=== PATIENT | female | born 1970 | race Caucasian/White ===

== ENCOUNTER 2017-02-26 10:40 | Inpatient (IN) | payer MEDICAID ==
[2017-02-21 11:34] VITALS: BMI 28.3
[2017-02-26] MEDS ORDERED: Bupivacaine HCl 0.25% PF (10 ml) Inj ONE (13:59)
[2017-02-26] MEDS ORDERED: ceFAZolin IV 1 gm in Dextrose 1 GM/50 ML BAG IVPB ONE (13:59)
[2017-02-26] MEDS ORDERED: Lactated Ringer's 1,000 ML IV ONE (14:05)
[2017-02-26] MEDS ORDERED: Midazolam 2 MG/2 ML VIAL ONE (14:09)
[2017-02-26] MEDS ORDERED: Propofol 10 mg/ml Inj (20 ML) ONE (14:09)
[2017-02-26] MEDS ORDERED: HYDROmorphone 0.5 mg/0.5 ml ISec IVP PRN (15:27)
[2017-02-26] MEDS ORDERED: Lactated Ringer's 1,000 ML IV SCH (15:30)
[2017-02-26] MEDS ORDERED: ceFAZolin IV 1 gm in Dextrose 1 GM/50 ML BAG IVPB SCH (15:45)
[2017-02-26] MEDS: ceFAZolin IV 1 gm in Dextrose 1 GM/50 ML BAG IVPB SCH (21:37)
[2017-02-26] MEDS: Enoxaparin 30 mg Syringe SC SCH (22:48)
[2017-02-26] MEDS: Oxycodone/Acetaminophen 5/325 mg Tab PO PRN (22:54)
[2017-02-27] MEDS: ceFAZolin IV 1 gm in Dextrose 1 GM/50 ML BAG IVPB SCH ×3 (05:29→22:25)
[2017-02-27 07:43] LABS: BASO % 0.5 % (0.0-2.0); EOS # 0.6 K/uL (0.0-0.7); EOS % 9.8 % (0.0-4.0); HEMOGLOBIN 10.2 g/dL (11.0-16.0); LYMPH # 1.5 K/uL (1.0-4.3); LYMPH % 23.9 % (20.0-40.0); MEAN CELL VOLUME 78.8 fL (81.0-99.0); MEAN PLATELET VOLUME 9.1 fL (7.2-11.7); MONO # 0.7 K/uL (0.0-0.8); MONO % 10.5 % (0.0-10.0); NEUT # 3.5 K/uL (1.8-7.0); NEUT % 55.3 % (50.0-75.0); RBC 3.91 Mil/uL (3.80-5.20); RED CELL DISTRIBUTION WIDTH 15.9 % (11.5-14.5); WHITE BLOOD COUNT 6.3 K/uL (4.8-10.8)
[2017-02-27 08:06] LABS: ALBUMIN 3.6 g/dL (3.5-5.0)
[2017-02-27 08:09] LABS: ALB/GLOB RATIO 1.2 (1.0-2.1); AST/SGOT 37 U/L (14-36); BLOOD UREA NITROGEN 11 mg/dL (7-17); GFR AFRICAN-AMERICAN > 60; GFR NON-AFRICAN AMERICAN > 60
[2017-02-27 08:10] LABS: ALT/SGPT 44 U/L (9-52); CALCIUM 8.5 mg/dl (8.6-10.4)
[2017-02-27] MEDS: Enoxaparin 30 mg Syringe SC SCH ×3 (09:38→22:27)
[2017-02-27] MEDS: Oxycodone/Acetaminophen 5/325 mg Tab PO PRN ×2 (09:41→19:15)
[2017-02-27] MEDS: Dextrose 5%/0.45% NS 1,000 ML IV SCH ×2 (11:54→17:25)
[2017-02-28 00:20] VITALS: PULSE 99; O2SAT 98
[2017-02-28] MEDS: ceFAZolin IV 1 gm in Dextrose 1 GM/50 ML BAG IVPB SCH (06:41)
[2017-02-28 08:40] VITALS: BP 99/67; RESP 18; TEMP 98.8
[2017-02-28] MEDS: Oxycodone/Acetaminophen 5/325 mg Tab PO PRN (09:41)
[2017-02-28] MEDS: Enoxaparin 30 mg Syringe SC SCH (09:44)
[2017-02-28] MEDS ORDERED: Pantoprazole 40 mg EC Tab PO SCH (10:00)
--- NOTE | 2017-03-20 05:11 | OP ---
PROCEDURE DATE: 02/28/2017 PREOPERATIVE DIAGNOSIS: Bilateral large soft tissue knee tumors. POSTOPERATIVE DIAGNOSIS: Bilateral large soft tissue knee tumors. PROCEDURE PERFORMED: Wide deep excision of a 12 cm soft tissue knee tumor of the left knee and 10 cm soft tissue tumor of the right knee with repair of blood vessels and excision tissue transfer closure bilaterally. SURGEON: Dr. Mantilla. TYPE OF ANESTHESIA: General. ESTIMATED BLOOD LOSS: 50 mL POSTOPERATIVE CONDITION: Stable. INDICATION FOR SURGERY: This is a 47-year-old female with a bilateral knee tumors medially which were uncomfortable and increased in its size and pain, who now undergo simultaneous excision. DESCRIPTION OF PROCEDURE: The patient taken to the operating room, general anesthesia was administered and both legs were prepped and draped. Attention was first turned to the left knee medially where transverse elliptical incision was made surrounding the mass. Superior and inferior flaps were raised and the tumor was completely excised to the fascial layer and removed. Bleeding was controlled using the Bovie. Large blood vessels were repaired. Wound was irrigated with copious amounts of saline solution and the tissue was widely using the Bovie and adjacent tissue transfer closure of greater than 30 sq cm was performed. Using multilayer of heavy Monocryl, subcuticular Monocryl and skin clips. The above was repeated on the right side without significant change. The patient tolerated the procedure well. Returned to the recovery room in stable condition. Graham Mantilla MD
== END 2017-02-28 16:20 | disposition home or self-care (01) | DRG 266 ==
LOC: C.SDS 10:40 → C.9E 15:31 → C.6T 22:02
PROVIDERS: ADMIT Surgery; ATTEND Surgery
PROC: 0JBN0ZZ Excision of Right Lower Leg Subcutaneous Tissue and Fascia, Open Approach (ICD-10-PCS; 2017-02-26)
PROC: 0JBP0ZZ Excision of Left Lower Leg Subcutaneous Tissue and Fascia, Open Approach (ICD-10-PCS; principal; 2017-02-26 13:00)
DX: D17.23 Benign lipomatous neoplasm of skin and subcutaneous tissue of right leg (principal); D17.24 Benign lipomatous neoplasm of skin and subcutaneous tissue of left leg; D23.72 Other benign neoplasm of skin of left lower limb, including hip; D23.71 Other benign neoplasm of skin of right lower limb, including hip

== ENCOUNTER 2017-03-17 08:43 | Inpatient (IN) | payer MEDICAID ==
[2017-03-12 07:48] VITALS: BMI 37.0
[2017-03-17] MEDS ORDERED: ceFAZolin IV 1 gm in Dextrose 0 GM/0 ML BAG IVPB ONE (10:43)
[2017-03-17] MEDS ORDERED: Bacitracin Ointment 30 GM TUBE ONE (10:43)
[2017-03-17] MEDS ORDERED: Midazolam 2 MG/2 ML VIAL ONE (11:49)
[2017-03-17] MEDS ORDERED: Propofol 10 mg/ml Inj (20 ML) ONE ×2 (11:49→12:43)
[2017-03-17] MEDS ORDERED: Lactated Ringer's 1,000 ML IV ONE ×2 (12:00→15:10)
[2017-03-17] MEDS ORDERED: Bupivacaine HCl 0.25% PF (10 ml) Inj ONE (12:06)
[2017-03-17] MEDS ORDERED: ceFAZolin IV 2 gm in Dextrose 1 GM/50 ML BAG IVPB ONE (12:06)
[2017-03-17] MEDS ORDERED: Rocuronium 10 mg/ml (5 ml) ONE (12:08)
[2017-03-17] MEDS ORDERED: Succinylcholine Chloride 20 mg/ml Syr (5 ml) IV ONE (12:08)
[2017-03-17] MEDS ORDERED: Morphine 4 MG/ML VIAL ONE (12:29)
[2017-03-17] MEDS ORDERED: HYDROmorphone 0.5 mg/0.5 ml ISec IVP PRN (12:37)
[2017-03-17] MEDS: ceFAZolin IV 1 gm in Dextrose 1 GM/50 ML BAG IVPB SCH (18:00)
[2017-03-17] MEDS: Oxycodone/Acetaminophen 5/325 mg Tab PO PRN (21:52)
[2017-03-18] MEDS: ceFAZolin IV 1 gm in Dextrose 1 GM/50 ML BAG IVPB SCH ×3 (00:45→16:00)
--- NOTE | 2017-03-18 01:16 | OP ---
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 PROCEDURE PERFORMED: 1. Right deep radical resection of tumor of the left hip with adjacent tissue transfer closure. 2. Drainage of seroma of the right knee. SURGEON: Dr. Mantilla. TYPE OF ANESTHESIA: General. ESTIMATED BLOOD LOSS: 40 mL. POSTOPERATIVE CONDITION: Stable. INDICATIONS FOR SURGERY: This is a 47-year-old female, who is 3 weeks status post bilateral excision of knee tumors, one of which required a drain. 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 Of note, on presentation today, she has a small seroma in one of her right knee incision and this will be drained at the time of surgery. DESCRIPTION OF PROCEDURE: The patient was taken to the operating room, placed in the right lateral decubitus position with the right hip elevated. The tumor was measured and found to be 16 x 10 cm in size. A generous elliptical incision was made over the tumor. Superior and inferior flaps were raised completely excising the tumor down to the fascial layer. The fascial layer was completely removed off tumor and a pelvic blood vessel was noted and repaired. The wound was irrigated with copious amounts of saline solution, *------* large tissue defect a greater than 30 sq cm transfer closure was performed by widely mobilizing and undermining using the Bovie and then using multiple layers of subcuticular Monocryl and clips. A Chase drain was left in place. Attention was then turned to the left knee where most seroma was noted, opened, drained, irrigated and packed. The patient tolerated the procedure well and returned to the recovery room in stable condition. Graham Mantilla MD
[2017-03-18 08:36] LABS: BASO # 0.1 K/uL (0.0-0.2); BASO % 1.2 % (0.0-2.0); EOS # 0.4 K/uL (0.0-0.7); EOS % 9.3 % (0.0-4.0); HEMOGLOBIN 9.7 g/dL (11.0-16.0); LYMPH # 1.7 K/uL (1.0-4.3); LYMPH % 36.9 % (20.0-40.0); MEAN CELL VOLUME 77.8 fL (81.0-99.0); MEAN CORPUSCULAR HEMOGLOBIN 24.7 pg (27.0-31.0); MEAN CORPUSCULAR HGB CONC 31.8 g/dL (33.0-37.0); MEAN PLATELET VOLUME 9.1 fL (7.2-11.7); MONO # 0.5 K/uL (0.0-0.8); MONO % 9.7 % (0.0-10.0); NEUT % 42.9 % (50.0-75.0); NRBC % 0.1 % (0.0-2.0); RBC 3.91 Mil/uL (3.80-5.20); RED CELL DISTRIBUTION WIDTH 15.6 % (11.5-14.5); WHITE BLOOD COUNT 4.7 K/uL (4.8-10.8)
[2017-03-18 09:11] LABS: ALBUMIN 3.3 g/dL (3.5-5.0)
[2017-03-18 09:14] LABS: ALB/GLOB RATIO 1.1 (1.0-2.1); AST/SGOT 35 U/L (14-36); BLOOD UREA NITROGEN 17 mg/dL (7-17); GFR AFRICAN-AMERICAN > 60; GFR NON-AFRICAN AMERICAN > 60
[2017-03-18 09:15] LABS: ALT/SGPT 42 U/L (9-52); CALCIUM 8.4 mg/dl (8.6-10.4)
[2017-03-18] MEDS: Enoxaparin 40 mg Syringe SC SCH (09:24)
--- NOTE | 2017-03-18 16:27 | CP.PCM.CON ---
<Naomi Morejon - Last Filed: 03/18/17 15:59> History of Present Illness - History of Present Illness History of Present Illness: CC: "I feel good" HPI: Patient is a 47 year old female with PMHx of DMII and hypothyroidism presenting s/p b/l hip mass excisions POD #[address] Mantilla. Patient is scheduled for another right hip mass excision tomorrow morning. Patient reports no pain. She denies fever, chills, chest pain, SOB, nausea, vomiting, diarrhea, constipation, dysuria, headaches. PMHx: as shayla PSHx: C section 2002, b/l knee mass excision - pathology came back as soft yellow adipose tissue Family Hx: Father had CVA in his 80s, no MIs or CA Social Hx: denies tobacco use ever, denies ETOH use, denies illicit drug use, Review of Systems - Constitutional Constitutional: absent: Chills, Fever - EENT Eyes: absent: Change in Vision Ears: absent: Dizziness Nose/Mouth/Throat: absent: Sore Throat - Cardiovascular Cardiovascular: absent: Chest Pain, Palpitations, Pedal Edema - Respiratory Respiratory: absent: Cough, Dyspnea, Wheezing - Gastrointestinal Gastrointestinal: absent: Abdominal Pain, Constipation, Diarrhea, Nausea, Vomiting - Genitourinary Genitourinary: absent: Dysuria - Integumentary Integumentary: absent: Skin Pain - Neurological Neurological: absent: Dizziness, Headaches - Psychiatric Psychiatric: absent: Anxiety - Hematologic/Lymphatic Hematologic: absent: Easy Bleeding, Easy Bruising Past Patient History - Past Medical History & Family History Past Medical History?: Yes Past Family History: Reviewed and not pertinent - Past Social History Smoking Status: Never Smoked 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 HX: MASS LEFT THIGH - MUSCULOSKELETAL/RHEUMATOLOGICAL Hx Falls: No - PSYCHIATRIC Hx Substance Use: No - SURGICAL HISTORY Hx Surgeries: Yes Hx Section: Yes Other/Comment: HX: EXCISION BILATERAL KNEE TUMORS - ANESTHESIA Hx Anesthesia: Yes Hx Anesthesia Reactions: No Hx Malignant Hyperthermia: No Meds Allergies/Adverse Reactions: Allergies Allergy/AdvReac Type Severity Reaction Status Date / Time No Known Allergies Allergy Verified 04/04/14 11:14 - Medications Medications: Current Medications Docusate Sodium (Colace) 100 mg PO BID [facility] Last Admin: 03/18/17 09:25 Dose: 100 mg Enoxaparin Sodium (Lovenox) 40 mg SC DAILY [facility] Last Admin: 03/18/17 09:24 Dose: 40 mg Famotidine (Pepcid) 20 mg IVP DAILY [facility] Last Admin: 03/18/17 09:25 Dose: 20 mg Cefazolin Sodium/Dextrose (Ancef Iv 1 Gm Duplex) 1 gm in 50 mls @ 100 mls/hr IVPB Q8H [facility] Last Admin: 03/18/17 09:25 Dose: 100 mls/hr Ondansetron HCl (Zofran Inj) 4 mg IVP Q6 PRN PRN Reason: Nausea/Vomiting Oxycodone/Acetaminophen (Percocet 5/325 Mg Tab) 2 tab PO Q4H PRN PRN Reason: pain Stop: 03/20/17 16:01 Last Admin: 03/17/17 21:52 Dose: 2 tab Physical Exam - Constitutional Appears: Non-toxic, No Acute Distress - Head Exam Head Exam: NORMAL INSPECTION - Eye Exam Eye Exam: EOMI - ENT Exam ENT Exam: Mucous Membranes Moist - Respiratory Exam Respiratory Exam: Clear to Auscultation Bilateral, NORMAL BREATHING PATTERN. absent: Rales, Rhonchi, Wheezes - Cardiovascular Exam Cardiovascular Exam: REGULAR RHYTHM, +S1, +S2. absent: Gallop, Rubs, Systolic Murmur - GI/Abdominal Exam GI & Abdominal Exam: Normal Bowel Sounds, Soft. absent: Distended, Firm, Tenderness - Extremities Exam Extremities exam: Positive for: normal capillary refill. Negative for: pedal edema - Neurological Exam Neurological exam: Alert, Oriented x3 - Psychiatric Exam Psychiatric exam: Normal Affect, Normal Mood - Skin Skin Exam: Normal Color, Warm Results - Vital Signs Recent Vital Signs: Last Vital Signs Temp 98.4 F 03/18/17 08:00 Pulse 85 03/18/17 08:00 Resp 20 03/18/17 08:00 BP 127/80 03/18/17 08:00 Pulse Ox 94 L 03/18/17 08:00 - Labs Result Diagrams: 03/18/17 08:23 03/18/17 08:23 Labs: Laboratory Results - last 24 hr 03/17/17 03/17/17 03/18/17 18:15 21:34 07:13 WBC RBC Hgb Hct MCV MCH MCHC RDW Plt Count MPV Neut % (Auto) Lymph % (Auto) [place] % (Auto) Eos % (Auto) Baso % (Auto) Neut # Lymph # [place] # Eos # Baso # Sodium Potassium Chloride Carbon Dioxide Anion Gap BUN Creatinine Est GFR ( Amer) Est GFR (Non-Af Amer) POC Glucose (mg/dL) 103 167 H 121 H Random Glucose Calcium Total Bilirubin AST ALT Alkaline Phosphatase Total Protein Albumin Globulin Albumin/Globulin Ratio 03/18/17 03/18/17 03/18/17 08:23 08:23 10:43 WBC 4.7 L RBC 3.91 Hgb 9.7 L Hct 30.4 L MCV 77.8 L MCH 24.7 L MCHC 31.8 L RDW 15.6 H Plt Count 179 MPV 9.1 Neut % (Auto) 42.9 L Lymph % (Auto) 36.9 [place] % (Auto) 9.7 Eos % (Auto) 9.3 H Baso % (Auto) 1.2 Neut # 2.0 Lymph # 1.7 [place] # 0.5 Eos # 0.4 Baso # 0.1 Sodium 136 Potassium 3.7 Chloride 101 Carbon Dioxide 26 Anion Gap 13 BUN 17 Creatinine 0.6 L Est GFR ( Amer) > 60 Est GFR (Non-Af Amer) > 60 POC Glucose (mg/dL) 112 H Random Glucose 122 H Calcium 8.4 L Total Bilirubin 0.3 AST 35 ALT 42 Alkaline Phosphatase 51 Total Protein 6.3 Albumin 3.3 L Globulin 3.0 Albumin/Globulin Ratio 1.1 Assessment & Plan - Assessment and Plan (Free Text) Assessment: DM II Holding home metformin 1000mg PO BID RISS accuchecks F/U HgbA1C Hypothyroid F/U TSH Continue home synthroid 75 mcg PO daily S/P Hip mass excision POD #[address] Mantilla Ancef 1gm IVPB Q8H Colace 100mg PO BID Percocet 5/325mg 2 tab PO Q4H PRN Zofran 4mg IVP Q6 PRN Prophylaxis Lovenox 40mg SC daily - held for surgery tomorrow Pepcid 20mg IVP daily <Prateek Hernandezjaxon Berman - Last Filed: 03/19/17 16:21> Meds - Medications Medications: Current Medications Docusate Sodium (Colace) 100 mg PO BID [facility] Last Admin: 03/19/17 10:00 Dose: Not Given Enoxaparin Sodium (Lovenox) 40 mg SC DAILY [facility] Last Admin: 03/18/17 09:24 Dose: 40 mg Famotidine (Pepcid) 20 mg IVP DAILY [facility] Last Admin: 03/19/17 09:27 Dose: 20 mg Hydromorphone HCl (Dilaudid) 0.5 mg IVP Q10M PRN PRN Reason: Pain, moderate (4-7) Stop: 03/19/17 16:36 Last Admin: 03/19/17 15:03 Dose: 0.5 mg Cefazolin Sodium/Dextrose (Ancef Iv 1 Gm Duplex) 1 gm in 50 mls @ 100 mls/hr IVPB Q8H [facility] Last Admin: 03/19/17 08:30 Dose: 100 mls/hr Insulin Human Regular (Novolin R) 0 unit SC [facility] PRN Reason: Protocol Levothyroxine Sodium (Synthroid) 75 mcg PO DAILY@0630 [facility] Last Admin: 03/19/17 05:40 Dose: 75 mcg Ondansetron HCl (Zofran Inj) 4 mg IVP Q6 PRN PRN Reason: Nausea/Vomiting Oxycodone/Acetaminophen (Percocet 5/325 Mg Tab) 2 tab PO Q4H PRN PRN Reason: pain Stop: 03/20/17 16:01 Last Admin: 03/17/17 21:52 Dose: 2 tab Results - Vital Signs Recent Vital Signs: Last Vital Signs Temp 99.1 F 03/19/17 14:35 Pulse 76 03/19/17 15:15 Resp 10 L 03/19/17 15:15 BP 128/70 03/19/17 15:15 Pulse Ox 99 03/19/17 15:15 - Labs Result Diagrams: 03/18/17 08:23 03/18/17 08:23 Labs: Laboratory Results - last 24 hr 03/18/17 03/18/17 03/19/17 16:47 21:32 07:01 POC Glucose (mg/dL) 107 124 H Hemoglobin A1c 7.3 H TSH 3rd Generation Urine HCG, Qual 03/19/17 03/19/17 03/19/17 07:01 07:08 07:15 POC Glucose (mg/dL) 119 H Hemoglobin A1c TSH 3rd Generation 5.95 H Urine HCG, Qual Negative 03/19/17 03/19/17 11:25 16:03 POC Glucose (mg/dL) 117 H 128 H Hemoglobin A1c TSH 3rd Generation Urine HCG, Qual Attending/Attestation - Attestation I have personally seen and examined this patient.: Yes I have fully participated in the care of the patient.: Yes I have reviewed all pertinent clinical information: Yes Notes (Text): 03/19/17 16:21 Patient was seen and examined at bedside with the resident at the time of consultation I discussed the plan of care with the resident in detail and agree with the assessment and plan documented here. Thank you for allowing us to participate in the care of this patient. We will continue to follow the patient during her stay in the hospital.
[2017-03-18] MEDS: (Novolin R) Insulin Human Regular 100 units/ml vial SC SCH ×2 (16:30→22:00)
[2017-03-19] MEDS: ceFAZolin IV 1 gm in Dextrose 1 GM/50 ML BAG IVPB SCH ×3 (00:10→16:29)
[2017-03-19] MEDS: Levothyroxine 75 MCG TAB PO SCH (05:40)
[2017-03-19] MEDS: (Novolin R) Insulin Human Regular 100 units/ml vial SC SCH ×4 (08:12→21:43)
[2017-03-19] MEDS ORDERED: Lactated Ringer's 1,000 ML IV ONE ×2 (12:44)
[2017-03-19] MEDS ORDERED: Midazolam 2 MG/2 ML VIAL ONE (13:21)
[2017-03-19] MEDS ORDERED: Propofol 10 mg/ml Inj (20 ML) ONE (13:21)
[2017-03-19] MEDS: HYDROmorphone 0.5 mg/0.5 ml ISec IVP PRN ×2 (14:43→15:03)
--- NOTE | 2017-03-19 16:44 | CP.PCM.PN ---
<Laura Mcgraw - Last Filed: 03/19/17 18:16> Subjective - Date & Time of Evaluation Date of Evaluation: 03/19/17 Time of Evaluation: 07:30 - Subjective Subjective: PGY1- Medicine Note- Dr. Obrien's Service Patient seen and examined at bedside this am and feeling okay. Patient has some left sided pain at the site of her incision and a drain with serosangious drainage. Patient reexamined after her surgery on the right hip and was in more pain especially on the right side. Left drain had been removed. She denied headache, chest pain, abdominal pain, nausea, vomiting, diarrhea, constipation. Objective - Vital Signs/Intake and Output Vital Signs (last 24 hours): Temp Pulse Resp BP Pulse Ox 99.1 F 76 10 L 128/70 99 03/19/17 14:35 03/19/17 15:15 03/19/17 15:15 03/19/17 15:15 03/19/17 15:15 Intake and Output: 03/19/17 03/19/17 06:59 18:59 Intake Total 600 150 Output Total 80 100 Balance 520 50 - Medications Medications: Current Medications Docusate Sodium (Colace) 100 mg PO BID [facility] Last Admin: 03/19/17 10:00 Dose: Not Given Enoxaparin Sodium (Lovenox) 40 mg SC DAILY [facility] Last Admin: 03/18/17 09:24 Dose: 40 mg Famotidine (Pepcid) 20 mg IVP DAILY [facility] Last Admin: 03/19/17 09:27 Dose: 20 mg Cefazolin Sodium/Dextrose (Ancef Iv 1 Gm Duplex) 1 gm in 50 mls @ 100 mls/hr IVPB Q8H [facility] Last Admin: 03/19/17 16:29 Dose: 100 mls/hr Insulin Human Regular (Novolin R) 0 unit SC ACHS [facility] PRN Reason: Protocol Levothyroxine Sodium (Synthroid) 75 mcg PO DAILY@0630 [facility] Last Admin: 03/19/17 05:40 Dose: 75 mcg Ondansetron HCl (Zofran Inj) 4 mg IVP Q6 PRN PRN Reason: Nausea/Vomiting Oxycodone/Acetaminophen (Percocet 5/325 Mg Tab) 2 tab PO Q4H PRN PRN Reason: pain Stop: 03/20/17 16:01 Last Admin: 03/17/17 21:52 Dose: 2 tab - Labs Labs: 03/18/17 08:23 03/18/17 08:23 - Constitutional Appears: Well, Non-toxic, No Acute Distress - Head Exam Head Exam: ATRAUMATIC, NORMAL INSPECTION, NORMOCEPHALIC - Eye Exam Eye Exam: Normal appearance - ENT Exam ENT Exam: Mucous Membranes Moist, Normal Exam - Neck Exam Neck Exam: Full ROM, Normal Inspection. absent: Lymphadenopathy - Respiratory Exam Respiratory Exam: Clear to Ausculation Bilateral, NORMAL BREATHING PATTERN - Cardiovascular Exam Cardiovascular Exam: REGULAR RHYTHM, +S1, +S2. absent: Murmur - GI/Abdominal Exam GI & Abdominal Exam: Soft, Normal Bowel Sounds. absent: Distended, Firm, Guarding, Rigid, Tenderness - Extremities Exam Extremities Exam: Tenderness Additional comments: right and left side incisions covered with dry, clean, intact dressing b/l knees with juana healing well - Back Exam Back Exam: NORMAL INSPECTION. absent: rash noted - Neurological Exam Neurological Exam: Alert, Awake, Oriented x3 - Psychiatric Exam Psychiatric exam: Normal Affect, Normal Mood - Skin Skin Exam: Normal Color, Warm Additional comments: right and left side incisions covered with dry, clean, intact dressing b/l knees with juana healing well Assessment and Plan - Assessment and Plan (Free Text) Assessment: DM II Holding home metformin 1000mg PO BID until patient on a consistent diet RISS accuchecks [id number] Hypothyroid TSH-5.95 Continue home synthroid 75 mcg PO daily S/P left Hip mass excision POD #2 and right Hip mass excision POD #[address] Mantilla Ancef 1gm IVPB Q8H Colace 100mg PO BID Percocet 5/325mg 2 tab PO Q4H PRN Zofran 4mg IVP Q6 PRN Prophylaxis Lovenox 40mg SC daily - held b/c of surgery Pepcid 20mg IVP daily <Nori Obrien V - Last Filed: 03/19/17 23:09> Objective - Vital Signs/Intake and Output Vital Signs (last 24 hours): Temp Pulse Resp BP Pulse Ox 97.9 F 69 20 104/69 95 03/19/17 16:20 03/19/17 16:20 03/19/17 16:20 03/19/17 16:20 03/19/17 16:20 Intake and Output: 03/19/17 03/20/17 18:59 06:59 Intake Total 150 Output Total 100 Balance 50 - Medications Medications: Current Medications Docusate Sodium (Colace) 100 mg PO BID [facility] Last Admin: 03/19/17 17:43 Dose: 100 mg Enoxaparin Sodium (Lovenox) 40 mg SC DAILY [facility] Last Admin: 03/18/17 09:24 Dose: 40 mg Famotidine (Pepcid) 20 mg IVP DAILY [facility] Last Admin: 03/19/17 09:27 Dose: 20 mg Cefazolin Sodium/Dextrose (Ancef Iv 1 Gm Duplex) 1 gm in 50 mls @ 100 mls/hr IVPB Q8H [facility] Last Admin: 03/19/17 16:29 Dose: 100 mls/hr Insulin Human Regular (Novolin R) 0 unit SC ACHS [facility] PRN Reason: Protocol Last Admin: 03/19/17 21:43 Dose: Not Given Levothyroxine Sodium (Synthroid) 75 mcg PO DAILY@0630 [facility] Last Admin: 03/19/17 05:40 Dose: 75 mcg Ondansetron HCl (Zofran Inj) 4 mg IVP Q6 PRN PRN Reason: Nausea/Vomiting Last Admin: 03/19/17 17:34 Dose: 4 mg Oxycodone/Acetaminophen (Percocet 5/325 Mg Tab) 2 tab PO Q4H PRN PRN Reason: pain Stop: 03/20/17 16:01 Last Admin: 03/19/17 17:43 Dose: 2 tab - Labs Labs: 03/19/17 17:05 03/19/17 17:05 Attending/Attestation - Attestation I have personally seen and examined this patient.: Yes I have fully participated in the care of the patient.: Yes I have reviewed all pertinent clinical information, including history, physical exam and plan: Yes Notes (Text): Patient seen, examined, and case discussed with day-time resident. Patient seen post-OR today with family at bedside. patient reports she urinated post-OR in recovery. Patient reports history of diabetes; wherein she takes Metformin; last use she reports was on Friday. Patient started on diet per surgery; diet adjusted to diabetic diet. Will continue to monitor accuchecks. insulin sliding scale subq, and continue thyroid medication. Surgery decision-making including preoperative/intraoperative/postoperative per surgery. Assessment/Plan 1) Diabetes type 2 * Holding home metformin 1000mg PO BID * Started on carbohydrate consistent diet * RISS * accuchecks QAC and HS * [id number] 2) Hypothyroid * TSH-5.95 * Continue home synthroid 75 mcg PO daily 3) S/P left Hip mass excision POD #2 and right Hip mass excision POD #0 * General surgery/Primary (Dr. Vargas) on case * Surgery decision-making including preoperative/intraoperative/postoperative per surgery. * Per surgery: * Ancef 1gm IVPB Q8H * Colace 100mg PO BID * Percocet 5/325mg 2 tab PO Q4H PRN pain * Zofran 4mg IVP Q6 PRN nausea 4) Prophylaxis * Anticoagulation to be determine by surgery * Pepcid 20mg IVP daily
[2017-03-19 16:50] VITALS: RESP 20
[2017-03-19 17:11] LABS: BASO % 0.5 % (0.0-2.0); EOS # 0.7 K/uL (0.0-0.7); EOS % 10.9 % (0.0-4.0); HEMOGLOBIN 9.5 g/dL (11.0-16.0); LYMPH # 1.6 K/uL (1.0-4.3); LYMPH % 26.1 % (20.0-40.0); MEAN CELL VOLUME 77.8 fL (81.0-99.0); MEAN CORPUSCULAR HEMOGLOBIN 25.1 pg (27.0-31.0); MEAN CORPUSCULAR HGB CONC 32.3 g/dL (33.0-37.0); MEAN PLATELET VOLUME 8.3 fL (7.2-11.7); MONO # 0.6 K/uL (0.0-0.8); MONO % 10.4 % (0.0-10.0); NEUT # 3.1 K/uL (1.8-7.0); NEUT % 52.1 % (50.0-75.0); RBC 3.81 Mil/uL (3.80-5.20); RED CELL DISTRIBUTION WIDTH 15.5 % (11.5-14.5)
[2017-03-19 17:27] LABS: ALBUMIN 3.6 g/dL (3.5-5.0)
[2017-03-19 17:29] LABS: GFR AFRICAN-AMERICAN > 60; GFR NON-AFRICAN AMERICAN > 60
[2017-03-19 17:30] LABS: ALB/GLOB RATIO 1.1 (1.0-2.1); ALT/SGPT 34 U/L (9-52); AST/SGOT 25 U/L (14-36); BLOOD UREA NITROGEN 12 mg/dL (7-17); CALCIUM 8.1 mg/dl (8.6-10.4)
[2017-03-19 17:31] LABS: MAGNESIUM 1.8 mg/dL (1.6-2.3)
[2017-03-19] MEDS: Oxycodone/Acetaminophen 5/325 mg Tab PO PRN (17:43)
[2017-03-20] MEDS: ceFAZolin IV 1 gm in Dextrose 1 GM/50 ML BAG IVPB SCH ×3 (00:55→17:27)
--- NOTE | 2017-03-20 04:49 | OP ---
PROCEDURE DATE: 03/19/2017 PREOPERATIVE DIAGNOSIS: A 15 cm soft tissue tumor of the right hip. POSTOPERATIVE DIAGNOSIS: A 15 cm soft tissue tumor of the right hip. PROCEDURE PERFORMED: Wide deep excision and radical resection of right hip tumor with adjacent tissue transfer closure. SURGEON: Dr. Mantilla. TYPE OF ANESTHESIA: General. ESTIMATED BLOOD LOSS: 40 mL. POSTOPERATIVE CONDITION: Stable. INDICATIONS FOR SURGERY: The patient was taken back to the OR for a staged removal of bilateral hip tumors. She underwent removal of a large left hip tumor 2 days ago. She has also had drainage of a wound infection of her right knee from previous surgery and that will be also be dealt with in the OR today. DESCRIPTION OF PROCEDURE: The patient was taken to the operating room. General anesthesia was administered. He was placed in the left lateral decubitus position. The right hip was prepped and draped. A generous elliptical excision was made surrounding the hip tumor and superior and inferior tissue flaps were raised. The hip tumor was excised into the facial layer and removed. Bleeding was controlled with the use of Bovie. Large vessel was repaired. The wound was irrigated with saline and the tissue was widely undermined and greater than 30 cm2 adjacent tissue transfer closure was performed using multiple layers of Monocryl, subcuticular Monocryl and skin clips. The patient was then placed in the supine position and the right knee packing from the previous drainage of the right knee seroma was prepped and draped. The right knee area was pulse irrigated and packed with wet saline gauze. The patient tolerated the procedure well and returned to the recovery room in stable condition. Graham Mantilla MD
[2017-03-20] MEDS: Levothyroxine 75 MCG TAB PO SCH (05:59)
[2017-03-20 06:38] LABS: BASO % 0.5 % (0.0-2.0); EOS # 0.7 K/uL (0.0-0.7); EOS % 11.1 % (0.0-4.0); HEMOGLOBIN 8.9 g/dL (11.0-16.0); LYMPH # 1.7 K/uL (1.0-4.3); MEAN CELL VOLUME 77.6 fL (81.0-99.0); MEAN CORPUSCULAR HEMOGLOBIN 25.2 pg (27.0-31.0); MEAN CORPUSCULAR HGB CONC 32.4 g/dL (33.0-37.0); MEAN PLATELET VOLUME 7.8 fL (7.2-11.7); MONO # 0.8 K/uL (0.0-0.8); MONO % 11.8 % (0.0-10.0); NEUT # 3.3 K/uL (1.8-7.0); NEUT % 50.6 % (50.0-75.0); RBC 3.54 Mil/uL (3.80-5.20); RED CELL DISTRIBUTION WIDTH 15.8 % (11.5-14.5); WHITE BLOOD COUNT 6.6 K/uL (4.8-10.8)
[2017-03-20 07:20] LABS: ALBUMIN 3.3 g/dL (3.5-5.0)
[2017-03-20 07:22] LABS: GFR AFRICAN-AMERICAN > 60; GFR NON-AFRICAN AMERICAN > 60
[2017-03-20 07:23] LABS: ALB/GLOB RATIO 1.1 (1.0-2.1); ALT/SGPT 32 U/L (9-52); AST/SGOT 30 U/L (14-36); BLOOD UREA NITROGEN 16 mg/dL (7-17); CALCIUM 8.4 mg/dl (8.6-10.4)
[2017-03-20] MEDS ORDERED: POLYETHYLENE GLYCOL 3350 17 GM/Dose PACKET PO ONE ×2 (07:30→13:14)
[2017-03-20] MEDS: (Novolin R) Insulin Human Regular 100 units/ml vial SC SCH ×4 (08:34→21:49)
[2017-03-20] MEDS: Oxycodone/Acetaminophen 5/325 mg Tab PO PRN (11:34)
--- NOTE | 2017-03-20 21:29 | CP.PCM.PN ---
<Laura Mcgraw - Last Filed: 03/20/17 21:26> Subjective - Date & Time of Evaluation Date of Evaluation: 03/20/17 Time of Evaluation: 07:30 - Subjective Subjective: PGY1- Medicine Note- Dr. Obrien's Service Patient seen and examined at bedside and in no acute distress. Patient has right sided hip pain. Patient has not had a bowel movement. Patient denies fever , chills, shortness of breath, chest pain, abdominal pain, nausea, vomiting. Objective - Vital Signs/Intake and Output Vital Signs (last 24 hours): Temp Pulse Resp BP Pulse Ox 98.6 F 68 20 113/78 98 03/20/17 15:50 03/20/17 15:50 03/20/17 15:50 03/20/17 15:50 03/20/17 15:50 Intake and Output: 03/20/17 03/21/17 18:59 06:59 Intake Total 450 Balance 450 - Medications Medications: Current Medications Docusate Sodium (Colace) 100 mg PO BID [facility] Last Admin: 03/20/17 17:27 Dose: 100 mg Enoxaparin Sodium (Lovenox) 40 mg SC DAILY [facility] Last Admin: 03/18/17 09:24 Dose: 40 mg Famotidine (Pepcid) 20 mg IVP DAILY [facility] Last Admin: 03/20/17 09:50 Dose: 20 mg Cefazolin Sodium/Dextrose (Ancef Iv 1 Gm Duplex) 1 gm in 50 mls @ 100 mls/hr IVPB Q8H [facility] Last Admin: 03/20/17 17:27 Dose: 100 mls/hr Insulin Human Regular (Novolin R) 0 unit SC ACHS [facility] PRN Reason: Protocol Last Admin: 03/20/17 17:28 Dose: Not Given Levothyroxine Sodium (Synthroid) 75 mcg PO DAILY@0630 [facility] Last Admin: 03/20/17 05:59 Dose: 75 mcg Ondansetron HCl (Zofran Inj) 4 mg IVP Q6 PRN PRN Reason: Nausea/Vomiting Last Admin: 03/19/17 17:34 Dose: 4 mg - Labs Labs: 03/20/17 06:26 03/20/17 06:26 - Constitutional Appears: Well, No Acute Distress - Head Exam Head Exam: ATRAUMATIC, NORMAL INSPECTION, NORMOCEPHALIC - Eye Exam Eye Exam: EOMI, Normal appearance, PERRL - ENT Exam ENT Exam: Mucous Membranes Moist, Normal Exam - Respiratory Exam Respiratory Exam: Clear to Ausculation Bilateral, NORMAL BREATHING PATTERN - Cardiovascular Exam Cardiovascular Exam: REGULAR RHYTHM, +S1, +S2. absent: Murmur - GI/Abdominal Exam GI & Abdominal Exam: Soft, Normal Bowel Sounds. absent: Tenderness - Extremities Exam Extremities Exam: Full ROM, Normal Capillary Refill, Normal Inspection. absent : Joint Swelling, Pedal Edema Additional comments: knees with juana bilaterally healing well b/l hip incisions healing well, dressing on right hip clean, intact, dry - Back Exam Back Exam: NORMAL INSPECTION. absent: rash noted - Neurological Exam Neurological Exam: Alert, Awake, Oriented x3 - Psychiatric Exam Psychiatric exam: Normal Affect, Normal Mood - Skin Skin Exam: Intact, Normal Color, Warm Assessment and Plan - Assessment and Plan (Free Text) Assessment: DM II patient to restart home metformin 1000mg PO BID tomorrow RISS accuchecks [id number] Hypothyroid TSH-5.95 Continue home synthroid 75 mcg PO daily S/P left Hip mass excision POD #2 and right Hip mass excision POD #[address] Mantilla Ancef 1gm IVPB Q8H Colace 100mg PO BID Percocet 5/325mg 2 tab PO Q4H PRN Zofran 4mg IVP Q6 PRN Prophylaxis Lovenox 40mg SC daily - held b/c of surgery Pepcid 20mg IVP daily <Nori Obrien V - Last Filed: 03/20/17 23:03> Objective - Vital Signs/Intake and Output Vital Signs (last 24 hours): Temp Pulse Resp BP Pulse Ox 98.6 F 68 20 113/78 98 03/20/17 15:50 03/20/17 15:50 03/20/17 15:50 03/20/17 15:50 03/20/17 15:50 Intake and Output: 03/20/17 03/21/17 18:59 06:59 Intake Total 450 Balance 450 - Medications Medications: Current Medications Docusate Sodium (Colace) 100 mg PO BID [facility] Last Admin: 03/20/17 17:27 Dose: 100 mg Enoxaparin Sodium (Lovenox) 40 mg SC DAILY [facility] Last Admin: 03/18/17 09:24 Dose: 40 mg Famotidine (Pepcid) 20 mg IVP DAILY [facility] Last Admin: 03/20/17 09:50 Dose: 20 mg Cefazolin Sodium/Dextrose (Ancef Iv 1 Gm Duplex) 1 gm in 50 mls @ 100 mls/hr IVPB Q8H [facility] Last Admin: 03/20/17 17:27 Dose: 100 mls/hr Insulin Human Regular (Novolin R) 0 unit SC ACHS [facility] PRN Reason: Protocol Last Admin: 03/20/17 21:49 Dose: Not Given Levothyroxine Sodium (Synthroid) 75 mcg PO DAILY@0630 [facility] Last Admin: 03/20/17 05:59 Dose: 75 mcg Ondansetron HCl (Zofran Inj) 4 mg IVP Q6 PRN PRN Reason: Nausea/Vomiting Last Admin: 03/19/17 17:34 Dose: 4 mg - Labs Labs: 03/20/17 06:26 03/20/17 06:26 Attending/Attestation - Attestation I have personally seen and examined this patient.: Yes I have fully participated in the care of the patient.: Yes I have reviewed all pertinent clinical information, including history, physical exam and plan: Yes Notes (Text): Patient seen, examined, and case discussed day-time resident. Patient seen post-OR POD1 with family at bedside. Patient seen at bedside. Patient advised to stop drinking soda, advised to not eating heavy food since completed surgery. Surgery decision-making including preoperative/intraoperative /postoperative per surgery. Assessment/Plan 1) Diabetes type 2 * Will start metformin 1000mg PO BID tomorrow * Started on carbohydrate consistent diet * RISS * accuchecks QAC and HS * [id number]-7.3 2) Hypothyroid * TSH-5.95 * Continue home synthroid 75 mcg PO daily 3) S/P left Hip mass excision POD #3 and right Hip mass excision POD #1 * General surgery/Primary (Dr. Vargas) on case * Surgery decision-making including preoperative/intraoperative/postoperative per surgery. * Discharge per surgery * Per surgery: * Ancef 1gm IVPB Q8H * Colace 100mg PO BID * Percocet 5/325mg 2 tab PO Q4H PRN pain * Zofran 4mg IVP Q6 PRN nausea 4) Prophylaxis * Anticoagulation to be determine by surgery * Pepcid 20mg IVP daily Patient is medically stable for diabetes. Will start metformin if not further intervention required.
[2017-03-21] MEDS: ceFAZolin IV 1 gm in Dextrose 1 GM/50 ML BAG IVPB SCH ×3 (00:12→17:17)
[2017-03-21] MEDS: Levothyroxine 75 MCG TAB PO SCH (06:20)
--- NOTE | 2017-03-21 07:07 | CP.PCM.PN ---
Subjective - Date & Time of Evaluation Date of Evaluation: 03/21/17 Time of Evaluation: 07:07 - Subjective Subjective: PGY-[address] Obrien's service: Patient seen and visited at bedside today with complaints of right hip, knee pain and difficulty swallowing. Patient is experiencing intermittent 8/10 sharp pain located at the right knee and hip post surgery. Pain is non radiating and is exacerbated while ambulating. Patient complains of difficulty swallowing with pain for 2 days post surgery. Pain is 6/10 non radiating. Patient has trouble swallowing solid foods, has a poor appetite, and is able to tolerate liquids. Last bowel movement was yesterday after surgery, patient able to urinate. Denies shortness of breath, chest pain, headache, dizziness, changes in vision, tinnitus, fever, chills, nausea, vomiting, diarrhea, constipation, dysuria, frequency of urination, leg pain, numbness in fingers and toes. Denies any other complaints. Objective - Vital Signs/Intake and Output Vital Signs (last 24 hours): Temp Pulse Resp BP Pulse Ox 98.4 F 88 20 114/62 96 03/20/17 23:58 03/20/17 23:58 03/20/17 23:58 03/20/17 23:58 03/20/17 23:58 Intake and Output: 03/21/17 03/21/17 06:59 18:59 Intake Total 450 Balance 450 - Medications Medications: Current Medications Docusate Sodium (Colace) 100 mg PO BID [facility] Last Admin: 03/20/17 17:27 Dose: 100 mg Enoxaparin Sodium (Lovenox) 40 mg SC DAILY [facility] Last Admin: 03/18/17 09:24 Dose: 40 mg Famotidine (Pepcid) 20 mg IVP DAILY [facility] Last Admin: 03/20/17 09:50 Dose: 20 mg Cefazolin Sodium/Dextrose (Ancef Iv 1 Gm Duplex) 1 gm in 50 mls @ 100 mls/hr IVPB Q8H [facility] Last Admin: 03/21/17 00:12 Dose: 100 mls/hr Insulin Human Regular (Novolin R) 0 unit SC ACHS [facility] PRN Reason: Protocol Last Admin: 03/20/17 21:49 Dose: Not Given Levothyroxine Sodium (Synthroid) 75 mcg PO DAILY@0630 [facility] Last Admin: 03/21/17 06:20 Dose: 75 mcg Ondansetron HCl (Zofran Inj) 4 mg IVP Q6 PRN PRN Reason: Nausea/Vomiting Last Admin: 03/19/17 17:34 Dose: 4 mg - Labs Labs: 03/20/17 06:26 03/20/17 06:26 - Constitutional Appears: Non-toxic, No Acute Distress - Head Exam Head Exam: ATRAUMATIC, NORMAL INSPECTION, NORMOCEPHALIC - Eye Exam Eye Exam: EOMI, Normal appearance Pupil Exam: PERRL - ENT Exam ENT Exam: Mucous Membranes Moist - Respiratory Exam Respiratory Exam: Clear to Ausculation Bilateral, NORMAL BREATHING PATTERN - Cardiovascular Exam Cardiovascular Exam: REGULAR RHYTHM, +S1, +S2 - GI/Abdominal Exam GI & Abdominal Exam: Soft, Normal Bowel Sounds. absent: Tenderness - Extremities Exam Extremities Exam: Full ROM, Normal Inspection Additional comments: knees with juana bilaterally healing well b/l hip incisions healing well, dressing on right hip clean, intact, dry - Neurological Exam Neurological Exam: Alert, Awake, Oriented x3 - Psychiatric Exam Psychiatric exam: Normal Affect, Normal Mood - Skin Skin Exam: Normal Color, Warm Assessment and Plan - Assessment and Plan (Free Text) Plan: Type two Diabetes Mellitus Consult for diabetes management No further surgical intervention planned so restarted Metformin 1000mg PO BID RISS accuchecks [id number] Hypothyroid TSH-5.95 Continue home synthroid 75 mcg PO daily S/P left Hip mass excision POD #2 and right Hip mass excision POD #[address] Mantilla Surgery decision-making including preoperative/intraoperative/postoperative per surgery Wound culture (03/19/17): Klebsiella pneumoniae, Gram negative dayne, Gram positive cocci Ancef 1gm IVPB Q8H Colace 100mg PO BID Percocet 5/325mg 2 tab PO Q4H PRN Zofran 4mg IVP Q6 PRN Prophylaxis Lovenox 40mg SC daily Pepcid 20mg IVP daily Discussed with Dr. Micah Botello PGY-1
[2017-03-21] MEDS: (Novolin R) Insulin Human Regular 100 units/ml vial SC SCH ×3 (08:00→17:16)
[2017-03-21 08:01] VITALS: TEMP 98.2; O2SAT 98
[2017-03-21] MEDS ORDERED: Oxycodone/Acetaminophen 5/325 mg Tab PO PRN (09:47)
[2017-03-21] MEDS: Enoxaparin 40 mg Syringe SC SCH (10:34)
[2017-03-21 14:04] LABS: BASO % 0.6 % (0.0-2.0); EOS # 0.7 K/uL (0.0-0.7); EOS % 10.9 % (0.0-4.0); HEMOGLOBIN 9.4 g/dL (11.0-16.0); LYMPH # 1.6 K/uL (1.0-4.3); LYMPH % 25.2 % (20.0-40.0); MEAN CELL VOLUME 78.2 fL (81.0-99.0); MEAN CORPUSCULAR HEMOGLOBIN 24.6 pg (27.0-31.0); MEAN CORPUSCULAR HGB CONC 31.5 g/dL (33.0-37.0); MEAN PLATELET VOLUME 8.6 fL (7.2-11.7); MONO # 0.8 K/uL (0.0-0.8); MONO % 12.2 % (0.0-10.0); NEUT # 3.3 K/uL (1.8-7.0); NEUT % 51.1 % (50.0-75.0); RBC 3.8 Mil/uL (3.80-5.20); RED CELL DISTRIBUTION WIDTH 15.8 % (11.5-14.5); WHITE BLOOD COUNT 6.4 K/uL (4.8-10.8)
[2017-03-21 14:09] LABS: ALBUMIN 3.9 g/dL (3.5-5.0)
[2017-03-21 14:12] LABS: ALB/GLOB RATIO 1.1 (1.0-2.1); AST/SGOT 28 U/L (14-36); GFR AFRICAN-AMERICAN > 60; GFR NON-AFRICAN AMERICAN > 60
[2017-03-21 14:13] LABS: ALT/SGPT 33 U/L (9-52); BLOOD UREA NITROGEN 11 mg/dL (7-17); CALCIUM 8.4 mg/dl (8.6-10.4)
[2017-03-21 14:14] LABS: MAGNESIUM 1.7 mg/dL (1.6-2.3)
[2017-03-21 16:38] VITALS: BP 138/83; PULSE 86
== END 2017-03-21 19:45 | DRG 564 ==
LOC: C.SDS 08:43 → C.9S 13:01 → C.3T 17:49
PROVIDERS: ADMIT Surgery; ATTEND Surgery
PROC: 0JBM0ZX Excision of Left Upper Leg Subcutaneous Tissue and Fascia, Open Approach, Diagnostic (ICD-10-PCS; 2017-03-17)
PROC: 0HXJXZZ Transfer Left Upper Leg Skin, External Approach (ICD-10-PCS; principal; 2017-03-17 10:00)
PROC: 0HXHXZZ Transfer Right Upper Leg Skin, External Approach (ICD-10-PCS; 2017-03-19)
PROC: 0JBL0ZZ Excision of Right Upper Leg Subcutaneous Tissue and Fascia, Open Approach (ICD-10-PCS; 2017-03-19)
PROC: 0HDKXZZ Extraction of Right Lower Leg Skin, External Approach (ICD-10-PCS; 2017-03-19)
DX: D17.79 Benign lipomatous neoplasm of other sites (principal); L76.34 Postprocedural seroma of skin and subcutaneous tissue following other procedure; E03.9 Hypothyroidism, unspecified; E11.9 Type 2 diabetes mellitus without complications; Y83.9 Surgical procedure, unspecified as the cause of abnormal reaction of the patient, or of later complication, without mention of misadventure at the time of the procedure

== ENCOUNTER 2017-04-06 20:19 | Inpatient (IN) | payer MEDICAID ==
[2017-04-06 20:19] VITALS: BMI 37.0
[2017-04-06 21:22] LABS: BASO # 0.1 K/uL (0.0-0.2); BASO % 0.8 % (0.0-2.0); EOS # 0.5 K/uL (0.0-0.7); EOS % 7.4 % (0.0-4.0); LYMPH # 1.2 K/uL (1.0-4.3); LYMPH % 18.6 % (20.0-40.0); MEAN CELL VOLUME 75.1 fL (81.0-99.0); MEAN CORPUSCULAR HEMOGLOBIN 24.3 pg (27.0-31.0); MEAN CORPUSCULAR HGB CONC 32.3 g/dL (33.0-37.0); MEAN PLATELET VOLUME 7.9 fL (7.2-11.7); MONO # 0.7 K/uL (0.0-0.8); MONO % 10.6 % (0.0-10.0); RED CELL DISTRIBUTION WIDTH 15.9 % (11.5-14.5); WHITE BLOOD COUNT 6.6 K/uL (4.8-10.8)
[2017-04-06 21:31] LABS: CHLORIDE 98 mmol/L (98-107)
[2017-04-06 21:32] LABS: SODIUM 137 mmol/L (132-148)
[2017-04-06 21:33] LABS: POTASSIUM 4.1 mmol/L (3.6-5.2)
[2017-04-06] MEDS ORDERED: Morphine 4 MG/ML VIAL IV STA (21:34)
[2017-04-06 21:35] LABS: ALKALINE PHOSPHATASE 70 U/L (38-126); ALT/SGPT 28 U/L (9-52); AST/SGOT 21 U/L (14-36); BILIRUBIN,TOTAL < 0.1 mg/dL (0.2-1.3); BLOOD UREA NITROGEN 11 mg/dL (7-17); CARBON DIOXIDE 27 mmol/L (22-30); GFR AFRICAN-AMERICAN > 60; GLUCOSE,RANDOM 168 mg/dL (65-105); TOTAL PROTEIN 7.3 g/dL (6.3-8.3)
[2017-04-06 21:36] LABS: CALCIUM 8.5 mg/dl (8.6-10.4)
[2017-04-06] MEDS ORDERED: Morphine 4 MG/ML VIAL ONE (21:40)
[2017-04-06] MEDS ORDERED: Piperacillin/Tazobact 3.375 GM in Sodium Chloride 100 ML IVPB STA (21:54)
[2017-04-06] MEDS ORDERED: Imipenem/Cilastatin 500 MG in Dextrose 5% In Water 100 ML IVPB STA (22:04)
[2017-04-06] MEDS ORDERED: Vancomycin 1 GM 1 GM/250 ML BAG IVPB ONE (22:29)
--- NOTE | 2017-04-06 23:19 | C.PDOC ---
History Of Present Illness 47 year old female presents to the ED with complaints of intermittent fever for approximately 3-4 days. Patient notes recent surgery with Dr. Mantilla on both knees and hips for cyst removal. She states right knee continues to have drainage and has pain in the left hip for two days. Patient took Motrin just prior to arrival and denies nausea, vomiting, SOB, or other complaints at this time. Time Seen by Provider: 04/06/17 20:44 Chief Complaint (Nursing): Fever History Per: Patient History/Exam Limitations: no limitations Onset/Duration Of Symptoms: Days (3-4 days ) Current Symptoms Are (Timing): Still Present Reports Recently: Treated By A Physician, Hospitalized Recent travel outside of the [place]: No Additional History Per: Prior Records Past Medical History Reviewed: Historical Data, Nursing Documentation, Vital Signs Vital Signs: Last Vital Signs Temp 98.1 F 04/10/17 09:45 Pulse 74 04/10/17 09:45 Resp 20 04/10/17 09:45 BP 106/68 04/10/17 09:45 Pulse Ox 98 04/10/17 09:45 - Medical History PMH: Arthritis (BACK; KNEES), Hypothyroidism - [facility] Procedures EXCISION OF L LOW LEG SUBCU/FASCIA, OPEN APPROACH (02/26/17) EXCISION OF L UP LEG SUBCU/FASCIA, OPEN APPROACH, DIAGN (03/17/17) EXCISION OF R LOW LEG SUBCU/FASCIA, OPEN APPROACH (02/26/17) EXCISION OF R UP LEG SUBCU/FASCIA, OPEN APPROACH (03/17/17) EXTRACTION OF RIGHT LOWER LEG SKIN, EXTERNAL APPROACH (03/17/17) TRANSFER LEFT UPPER LEG SKIN, EXTERNAL APPROACH (03/17/17) TRANSFER RIGHT UPPER LEG SKIN, EXTERNAL APPROACH (03/17/17) Family History: States: Unknown Family Hx - Social History Hx Tobacco Use: No Hx Alcohol Use: No Hx Substance Use: No - Immunization History Hx Tetanus Toxoid Vaccination: No Hx Influenza Vaccination: Yes Hx Pneumococcal Vaccination: No Review Of Systems Constitutional: Positive for: Fever. Negative for: Chills Cardiovascular: Negative for: Chest Pain Respiratory: Negative for: Shortness of Breath Gastrointestinal: Negative for: Nausea, Vomiting Musculoskeletal: Positive for: Other (right knee drainage and left hip pain ) Neurological: Negative for: Weakness, Numbness Physical Exam - Physical Exam Appears: Non-toxic, No Acute Distress Skin: Warm, Dry, Other (Right hip has well healed surgical scar. Left hip has 5cm in diameter, indurated, erythematus area of small dehiscence of a surgical scar noted) Head: Atraumatic Eye(s): bilateral: Normal Inspection, PERRL, EOMI Oral Mucosa: Moist Neck: Supple Chest: Symmetrical, No Deformity Cardiovascular: Rhythm Regular Respiratory: Normal Breath Sounds, No Rhonchi, No Wheezing Gastrointestinal/Abdominal: Soft, No Tenderness, No Distention, No Guarding, No Rebound Extremity: Other (Right knee wick in wound with positive drainage. Left knee has 5cm in diameter, indurated, erythematus area of small dehiscence of a surgical scar noted) Neurological/Psych: Oriented x3, Normal Speech, Normal Cognition, Normal Cranial Nerves, Normal Motor, Normal Sensation ED Course And Treatment - Laboratory Results Result Diagrams: 04/10/17 08:49 04/10/17 08:49 O2 Sat by Pulse Oximetry: 99 (room air ) Medical Decision Making Medical Decision Making: Case discussed with Dr. Mantilla who requested Dr. Day for ID consult. Recommended Vancomycin and Imipenem antibiotic. Patient recommended by Dr. Mantilla to be NPO. Possible debridement tomorrow. Disposition - Disposition Disposition: HOSPITALIZED Disposition Time: 22:00 Condition: STABLE - Clinical Impression Clinical Impression: Fever, Skin lesion, Cellulitis, Abscess - Scribe Statement The provider has reviewed the documentation as recorded by the Scribgeorge Richardson All medical record entries made by the Yolandaibgeorge were at my direction and personally dictated by me. I have reviewed the chart and agree that the record accurately reflects my personal performance of the history, physical exam, medical decision making, and the department course for this patient. I have also personally directed, reviewed, and agree with the discharge instructions and disposition.
[2017-04-07] MEDS: Potassium Ch 20mEq in D5-1/2NS 1,000 ML IV SCH ×2 (10:31→22:04)
--- NOTE | 2017-04-07 12:19 | CP.PCM.CON ---
History of Present Illness - History of Present Illness History of Present Illness: 47 year old female presents to the ED with complaints of intermittent fever for approximately 3-4 days. Patient notes recent surgery with Dr. Mantilla on both knees and hips for cyst removal. She states right knee continues to have drainage and has pain in the left hip for two days. Patient took Motrin just prior to arrival and denies nausea, vomiting, SOB, or other complaints at this time. - Medical History PMH: Arthritis (BACK; KNEES), Hypothyroidism - [facility] Procedures EXCISION OF L LOW LEG SUBCU/FASCIA, OPEN APPROACH (02/26/17) EXCISION OF L UP LEG SUBCU/FASCIA, OPEN APPROACH, DIAGN (03/17/17) EXCISION OF R LOW LEG SUBCU/FASCIA, OPEN APPROACH (02/26/17) EXCISION OF R UP LEG SUBCU/FASCIA, OPEN APPROACH (03/17/17) EXTRACTION OF RIGHT LOWER LEG SKIN, EXTERNAL APPROACH (03/17/17) TRANSFER LEFT UPPER LEG SKIN, EXTERNAL APPROACH (03/17/17) TRANSFER RIGHT UPPER LEG SKIN, EXTERNAL APPROACH (03/17/17) Family History: States: Unknown Family Hx iv rx ordered needs wound care/ debridementr Review of Systems - Review of Systems Systems not reviewed;Unavailable: Language Barrier - Constitutional Constitutional: As Per HPI - EENT Eyes: absent: As Per HPI, Blind Spots, Blurred Vision, Change in Vision, Decreased Night Vision, Diplopia, Discharge, Dry Eye, Exophthalmos, Floaters, Irritation, Itchy Eyes, Loss of Peripheral Vision, Pain, Photophobia, Requires Corrective Lenses, Sees Flashes, Spots in Vision, Tunnel Vision, Other Visual Disturbances, Loss of Vision, Other Ears: absent: As Per HPI, Decreased Hearing, Ear Discharge, Ear Pain, Tinnitus, Abnormal Hearing, Disequilibrium, Dizziness, Other Nose/Mouth/Throat: absent: As Per HPI, Epistaxis, Nasal Congestion, Nasal Discharge, Nasal Obstruction, Nasal Trauma, Nose Pain, Post Nasal Drip, Sinus Pain, Sinus Pressure, Bleeding Gums, Change in Voice, Dental Pain, Dry Mouth, Dysphagia, Halitosis, Hoarsness, Lip Swelling, Mouth Lesions, Mouth Pain, Odynophagia, Sore Throat, Throat Swelling, Tongue Swelling, Facial Pain, Neck Pain, Neck Mass, Other - Breasts Breasts: absent: As Per HPI, Change in Shape, Mass, Pain, Nipple Discharge, Nipple Inversion, Skin Changes, Swelling, Other - Cardiovascular Cardiovascular: absent: As Per HPI, Acrocyanosis, Chest Pain, Chest Pain at Rest , Chest Pain with Activity, Claudication, Diaphoresis, Dyspnea, Dyspnea on Exertion, Edema, Irregular Heart Rhythm, Pain Radiating to Arm/Neck/Jaw, Leg Edema, Leg Ulcers, Lightheadedness, Orthopnea, Palpitations, Paroxysmal Nocturnal Dyspnea, Pedal Edema, Radiating Pain, Rapid Heart Rate, Slow Heart Rate, Syncope, Other - Respiratory Respiratory: absent: As Per HPI, Cough, Dyspnea, Hemoptysis, Dyspnea on Exertion , Wheezing, Snoring, Stridor, Pain on Inspiration, Chest Congestion, Excessive Mucous Production, Change in Mucous Color, Pain with Coughing, Other - Gastrointestinal Gastrointestinal: absent: As Per HPI, Abdominal Pain, Belching, Bloating, Change in Bowel Habits, Change in Stool Character, Coffee Ground Emesis, Constipation, Cramping, Diarrhea, Dyspepsia, Dysphagia, Early Satiety, Excessive Flatus, Fecal Incontinence, Heartburn, Hematemesis, Hematochezia, Loose Stools, Melena, Nausea, Odynophagia, Temesmus, Vomiting, Other - Genitourinary Genitourinary: absent: As Per HPI, Change in Urinary Stream, Difficulty Urinating, Dysuria, Flank Pain, Hematuria, Pyuria, Nocturia, Urinary Incontinence, Urinary Frequency, Urinary Hesitance, Urinary Urgency, Voiding Freq/Small Amts, Freq UTI, Hx Renal/Bladder Calculi, Hx /Renal Surgery, Bladder Distension, Other - Reproductive: Female Reproductive:Female: absent: As Per HPI, Amenorrhea, Amenorrhea/ Control, Currently Menstual, Cycle <21 Days, Cycle >35 Days, Cycle Variable, Menses 1-7 Days, Menses >/= 8 Days, Menses Variable, Cycle > 4 Weeks Between, No Menses for 6 Months, Heavy Menses, Light Menses, Normal Menses, Spotting Between Cycles , S/P Hysterectomy, Menopausal, Post Menopausal, Premenarche, Abnormal Vaginal Bleeding, Dysmenorrhea, Dyspareunia, Genital Lesions, Genital Pruritis, Pelvic Pain, Prolapse Symptoms, Sexual Dysfunction, Vaginal Discharge, Vaginal Dryness , Vaginal Odor, Vaginal Pruritis, Other - Menstruation Menstruation: absent: As Per HPI, Amenorrhea, Amenorrhea/ Control, Currently Menstual, Cycle <21 Days, Cycle >35 Days, Cycle Variable, Menses 1-7 Days, Menses >/= 8 Days, Menses Variable, Cycle > 4 Weeks Between, No Menses for 6 Months, Heavy Menses, Light Menses, Normal Menses, Spotting Between Cycles , S/P Hysterectomy, Menopausal, Post Menopausal, Premenarche, Abnormal Vaginal Bleeding, Dysmenorrhea, Other - Musculoskeletal Musculoskeletal: As Per HPI - Integumentary Integumentary: As Per HPI - Neurological Neurological: absent: As Per HPI, Abnormal Gait, Abnormal Hearing, Abnormal Movements, Abnormal Speech, Behavioral Changes, Burning Sensations, Confusion, Convulsions, Disequilibrium, Dizziness, Numbness, Focal Weakness, Frequent Falls , Headaches, Lack of Coordination, Loss of Vision, Memory Loss, Paresthesias, Radicular Pain, Restless Legs, Sensory Deficit, Syncope, Tingling, Tremor, Vertigo, Weakness, Other Visual Disturbances, Other - Psychiatric Psychiatric: absent: As Per HPI, Abnormal Sleep Pattern, Anhedonia, Anxiety, Auditory Hallucinations, Behavioral Changes, Change in Appetite, Change in Libido, Confusion, Depression, Difficulty Concentrating, Hallucinations, Homicidal Ideation, Hopelessness, Irritability, Memory Loss, Mood Swings, Panic Attacks, Paranoia, Suicidal Ideation, Visual Hallucinations, Tactile Hallucinations, Other - Endocrine Endocrine: absent: As Per HPI, Change in Body Appearance, Change in Libido, Cold Intolorance, Deepening of Voice, Excessive Sweating, Fatigue, Flushing, Heat Intolorance, Increase in Ring/Shoe/Hat Size, Palpitations, Polydipsia, Polyphagia, Polyuria, Other - Hematologic/Lymphatic Hematologic: absent: As Per HPI, Easy Bleeding, Easy Bruising, Lymphadenopathy, Other Past Patient History - Past Medical History & Family History Past Medical History?: Yes - Past Social History Smoking Status: Never Smoked - PULMONARY Hx Respiratory Disorders: No - NEUROLOGICAL Hx Neurological Disorder: No - HEENT Hx HEENT Problems: No - RENAL Hx Chronic Kidney Disease: No - ENDOCRINE/METABOLIC Hx Endocrine Disorders: Yes Hx Hypothyroidism: Yes - HEMATOLOGICAL/ONCOLOGICAL Hx Blood Disorders: No - INTEGUMENTARY Hx Dermatological Problems: Yes Other/Comment: HX:bilateral knee tumors. HX: MASS LEFT THIGH - MUSCULOSKELETAL/RHEUMATOLOGICAL Hx Musculoskeletal Disorders: Yes Hx Arthritis: Yes (BACK; KNEES) Hx Falls: No - GASTROINTESTINAL Hx Gastrointestinal Disorders: No - GENITOURINARY/GYNECOLOGICAL Hx Genitourinary Disorders: No - PSYCHIATRIC Hx Psychophysiologic Disorder: No Hx Substance Use: No - SURGICAL HISTORY Hx Surgeries: Yes Hx Section: Yes Other/Comment: HX: EXCISION BILATERAL KNEE TUMORS - ANESTHESIA Hx Anesthesia: Yes Hx Anesthesia Reactions: No Hx Malignant Hyperthermia: No Meds Allergies/Adverse Reactions: Allergies Allergy/AdvReac Type Severity Reaction Status Date / Time No Known Allergies Allergy Verified 04/06/17 20:26 - Medications Medications: Current Medications Hydromorphone HCl (Dilaudid) 1 mg IVP Q4H PRN PRN Reason: Pain, moderate (4-7) Potassium Chloride/Dextrose/Sod Cl (Potassium Chl 20 Meq In D5-1/2ns) 1,000 mls @ 100 mls/hr IV .Q10H [facility] Last Admin: 04/07/17 10:31 Dose: 100 mls/hr Meropenem 1 gm/ Sodium (Chloride) 100 mls @ 100 mls/hr IVPB Q8 [facility] Vancomycin HCl 1,000 mg/ (Sodium Chloride) 250 mls @ 166.6 mls/hr IVPB Q12H [facility] Physical Exam - Constitutional Appears: Non-toxic, Chronically Ill - Head Exam Head Exam: NORMOCEPHALIC - Eye Exam Eye Exam: PERRL. absent: Scleral icterus - ENT Exam ENT Exam: Mucous Membranes Dry, Normal External Ear Exam - Neck Exam Neck exam: Negative for: Lymphadenopathy, Thyromegaly - Respiratory Exam Respiratory Exam: Decreased Breath Sounds, Clear to Auscultation Bilateral - Cardiovascular Exam Cardiovascular Exam: REGULAR RHYTHM - GI/Abdominal Exam GI & Abdominal Exam: Diminished Bowel Sounds, Soft. absent: Tenderness - Rectal Exam Rectal Exam: Deferred - Exam Exam: NORMAL INSPECTION - Extremities Exam Extremities exam: Negative for: calf tenderness, pedal edema - Back Exam Back exam: absent: CVA tenderness (L), CVA tenderness (R) - Neurological Exam Neurological exam: Alert, CN II-XII Intact, Oriented x3, Reflexes Normal - Psychiatric Exam Psychiatric exam: Normal Mood - Skin Skin Exam: Dry, Intact Results - Vital Signs Recent Vital Signs: Last Vital Signs Temp 98.3 F 04/07/17 08:14 Pulse 78 04/07/17 08:30 Resp 15 04/07/17 08:14 BP 123/83 04/07/17 08:14 Pulse Ox 100 04/07/17 08:14 - Labs Result Diagrams: 04/08/17 23:15 04/08/17 14:01 Assessment & Plan - Assessment and Plan (Free Text) Assessment: wound infection await cultures cont iv antibiotics
[2017-04-07] MEDS ORDERED: Lactated Ringer's 1,000 ML IV ONE (15:10)
[2017-04-07] MEDS ORDERED: Midazolam 2 MG/2 ML VIAL ONE (15:11)
[2017-04-07] MEDS ORDERED: Propofol 10 mg/ml Inj (20 ML) ONE (15:11)
[2017-04-07] MEDS ORDERED: HYDROmorphone 0.5 mg/0.5 ml ISec IVP PRN (16:01)
[2017-04-07] MEDS ORDERED: Oxycodone/Acetaminophen 5/325 mg Tab PO PRN (16:10)
[2017-04-07] MEDS: Meropenem 1 GM in Sodium Chloride 0.9% 100 ML IVPB SCH ×2 (16:30→23:23)
[2017-04-07] MEDS: HYDROmorphone 1 mg/ml ISec IVP PRN (18:50)
[2017-04-08] MEDS: HYDROmorphone 1 mg/ml ISec IVP PRN (04:54)
[2017-04-08] MEDS: Meropenem 1 GM in Sodium Chloride 0.9% 100 ML IVPB SCH ×3 (05:00→22:22)
[2017-04-08] MEDS: Potassium Ch 20mEq in D5-1/2NS 1,000 ML IV SCH ×2 (05:13→15:37)
--- NOTE | 2017-04-08 08:10 | CARD ---
APPROVED REPORT EKG Measurement Heart [id number] <Conclusion> Normal sinus rhythm Normal ECG
--- NOTE | 2017-04-08 09:38 | OP ---
PROCEDURE DATE: 04/07/2017 PREOPERATIVE DIAGNOSES: 1. Left hip abscess. 2. Open wound, left knee. PROCEDURE PERFORMED: 1. Debridement and pulse irrigation, repacking, open wound left knee. 2. Drainage of extensive abscess of left hip and pelvis with debridement, partial tissue transfer and closure. SURGEON: Dr. Mantilla. TYPE OF ANESTHESIA: General. ESTIMATED BLOOD LOSS: 30 mL. POSTOPERATIVE CONDITION: Stable. INDICATIONS FOR SURGERY: This is a 47-year-old female, who underwent extensive surgery, both hips and both knees for a large lipomas and fatty tumors with skin reduction. She subsequently developed a small infection in the right knee which was drained in the office and treated as an open wound infection. The patient has been taking care of it since without any issues. On the left hip, however, she recently developed a seroma which was drained in the office to the ER with cellulitis of the hip and an abscess and is now taken to the operating room post findings. There was approximately 200 mL of pus in the hip area which was drained, cultured. There was no pus in the right knee. The wound was cleaned, which was pulse irrigated and repacked. DESCRIPTION OF PROCEDURE: The patient was taken to operating room, general anesthesia was administered, was placed in the right lateral decubitus position. The medial right knee and left hip were prepped and draped. Attention was first turned to the right knee, which was pulse irrigated, debrided, and repacked. Attention was then turned to the left hip, where the wound was reopened and extensive hip and pelvic abscess was drained with the pus and debrided. The bleeding blood vessel was repaired and partial tissue transfer and closure was performed at the periphery. The central portion was packed open with saline gauze. The patient tolerated the procedure well, returned to the recovery room in stable condition. Graham Mantilla MD
[2017-04-08 14:20] LABS: CHLORIDE 99 mmol/L (98-107); SODIUM 136 mmol/L (132-148)
[2017-04-08 14:21] LABS: POTASSIUM 4.5 mmol/L (3.6-5.2)
[2017-04-08 14:23] LABS: ALKALINE PHOSPHATASE 60 U/L (38-126); ALT/SGPT 22 U/L (9-52); AST/SGOT 20 U/L (14-36); BILIRUBIN,TOTAL 0.3 mg/dL (0.2-1.3); BLOOD UREA NITROGEN 11 mg/dL (7-17); CALCIUM 8.1 mg/dl (8.6-10.4); CARBON DIOXIDE 27 mmol/L (22-30); GFR AFRICAN-AMERICAN > 60; GLUCOSE,RANDOM 145 mg/dL (65-105); TOTAL PROTEIN 6.7 g/dL (6.3-8.3)
[2017-04-08] MEDS: (Novolog) Insulin Aspart, Recombinant 100 u/ml 10 ml vial SC SCH ×3 (17:41→22:23)
[2017-04-08 23:18] LABS: BASO # 0.1 K/uL (0.0-0.2); BASO % 1.2 % (0.0-2.0); EOS # 0.9 K/uL (0.0-0.7); EOS % 13.7 % (0.0-4.0); LYMPH # 2.1 K/uL (1.0-4.3); LYMPH % 32.8 % (20.0-40.0); MEAN CELL VOLUME 75.5 fL (81.0-99.0); MEAN CORPUSCULAR HEMOGLOBIN 24.1 pg (27.0-31.0); MEAN CORPUSCULAR HGB CONC 31.9 g/dL (33.0-37.0); MEAN PLATELET VOLUME 8.5 fL (7.2-11.7); MONO # 0.7 K/uL (0.0-0.8); MONO % 10.9 % (0.0-10.0); NRBC % 0.1 % (0.0-2.0); RED CELL DISTRIBUTION WIDTH 15.8 % (11.5-14.5); WHITE BLOOD COUNT 6.3 K/uL (4.8-10.8)
[2017-04-09] MEDS: Potassium Ch 20mEq in D5-1/2NS 1,000 ML IV SCH ×3 (03:19→21:25)
[2017-04-09] MEDS: Meropenem 1 GM in Sodium Chloride 0.9% 100 ML IVPB SCH ×2 (05:22→21:24)
[2017-04-09] MEDS: Levothyroxine 75 MCG TAB PO SCH (07:04)
[2017-04-09] MEDS: (Novolog) Insulin Aspart, Recombinant 100 u/ml 10 ml vial SC SCH ×4 (07:15→23:52)
[2017-04-09] MEDS ORDERED: Levothyroxine 75 MCG TAB PO SCH (10:00)
[2017-04-09] MEDS ORDERED: Lactated Ringer's 1,000 ML IV ONE (13:55)
[2017-04-09] MEDS ORDERED: Propofol 10 mg/ml Inj (20 ML) ONE (13:58)
[2017-04-09] MEDS ORDERED: Midazolam 2 MG/2 ML VIAL ONE (13:58)
[2017-04-09] MEDS ORDERED: HYDROmorphone 0.5 mg/0.5 ml ISec ONE (15:05)
[2017-04-09] MEDS ORDERED: HYDROmorphone 0.5 mg/0.5 ml ISec IVP PRN (15:09)
--- NOTE | 2017-04-09 17:50 | CP.PCM.PN ---
Subjective - Date & Time of Evaluation Date of Evaluation: 04/09/17 Time of Evaluation: 08:00 - Subjective Subjective: iv rx in progress wounds pos forr mrsa Objective - Vital Signs/Intake and Output Vital Signs (last 24 hours): Temp Pulse Resp BP Pulse Ox 97.9 F 67 20 113/74 97 04/09/17 16:58 04/09/17 16:58 04/09/17 16:58 04/09/17 16:58 04/09/17 16:58 Intake and Output: 04/09/17 04/09/17 06:59 18:59 Intake Total 1999 Output Total 300 Balance 1999 -300 - Medications Medications: Current Medications Docusate Sodium (Colace) 100 mg PO BID [facility] Last Admin: 04/09/17 09:29 Dose: Not Given Heparin Sodium (Porcine) (Heparin) 5,000 units SC Q12 [facility] Last Admin: 04/09/17 12:18 Dose: Not Given Hydromorphone HCl (Dilaudid) 1 mg IVP Q4H PRN PRN Reason: Pain, moderate (4-7) Last Admin: 04/08/17 04:54 Dose: 1 mg Potassium Chloride/Dextrose/Sod Cl (Potassium Chl 20 Meq In D5-1/2ns) 1,000 mls @ 100 mls/hr IV .Q10H [facility] Last Admin: 04/09/17 12:29 Dose: 100 mls/hr Meropenem 1 gm/ Sodium (Chloride) 100 mls @ 100 mls/hr IVPB Q8 [facility] Last Admin: 04/09/17 05:22 Dose: 100 mls/hr Vancomycin HCl 1,000 mg/ (Sodium Chloride) 250 mls @ 166.6 mls/hr IVPB Q12H [facility] Last Admin: 04/09/17 12:29 Dose: 166.6 mls/hr Insulin Aspart (Novolog) 0 unit SC ACHS [facility] PRN Reason: Protocol Last Admin: 04/09/17 17:31 Dose: Not Given Levothyroxine Sodium (Synthroid) 75 mcg PO 0630 [facility] Last Admin: 04/09/17 07:04 Dose: Not Given Ondansetron HCl (Zofran Inj) 4 mg IVP Q6 PRN PRN Reason: Nausea/Vomiting Last Admin: 04/07/17 21:48 Dose: 4 mg Oxycodone/Acetaminophen (Percocet 5/325 Mg Tab) 1 tab PO Q4H PRN PRN Reason: pain Stop: 04/10/17 16:11 Pantoprazole Sodium (Protonix Inj) 40 mg IVP DAILY [facility] Last Admin: 04/09/17 10:09 Dose: 40 mg - Labs Labs: 04/08/17 23:15 - Head Exam Head Exam: ATRAUMATIC - Eye Exam Eye Exam: PERRL. absent: Scleral icterus - ENT Exam ENT Exam: Mucous Membranes Dry - Neck Exam Neck Exam: absent: Lymphadenopathy - Respiratory Exam Respiratory Exam: Decreased Breath Sounds, Clear to Ausculation Bilateral - Cardiovascular Exam Cardiovascular Exam: REGULAR RHYTHM - GI/Abdominal Exam GI & Abdominal Exam: Distended - Rectal Exam Rectal Exam: Deferred - Exam Exam: NORMAL INSPECTION - Extremities Exam Extremities Exam: absent: Pedal Edema - Back Exam Back Exam: absent: CVA tenderness (L), CVA tenderness (R) - Neurological Exam Neurological Exam: Alert, Awake Assessment and Plan - Assessment and Plan (Free Text) Assessment: mrsa wound infection cont vanco
[2017-04-09 19:57] LABS: IRON 25 ug/dL (37-170)
--- NOTE | 2017-04-10 01:02 | OP ---
PROCEDURE DATE: 04/09/2017 PREOPERATIVE DIAGNOSES: 1. Methicillin-resistant Staphylococcus aureus infection of left hip wound. 2. Open wound, right knee. PROCEDURE PERFORMED: 1. Pulse irrigation, debridement and closure, open wound of the right knee. 2. Pulse irrigation, re-drainage of left hip and pelvic abscess with partial tissue transfer and closure. SURGEON: Dr. Mantilla. TYPE OF ANESTHESIA: General. ESTIMATED BLOOD LOSS: 30 mL POSTOPERATIVE CONDITION: Stable. INDICATIONS FOR SURGERY: This is a 47-year-old female who underwent excision of large fatty tumors of the left hip and right knee, which she developed wound issues from 2 of the 4 sites of the surgeries. She developed seroma of the right knee, which was drained and subsequent wound infection of the left hip, which was treated 2 days ago with opening, drainage, debridement and packing. Because of the large size of the wound, she was taken back to the OR today for change under anesthesia. PROCEDURE: The patient was taken to the operating room, general anesthesia was administered. She was placed in right lateral decubitus position. Attention was first turned to the medial aspect of the right knee which was pulse irrigated, debrided and closed with 2-0 Monocryl and clips after a Chase drain had been placed in the cavity. The wound was cleaned free of any infection or cellulitis, this was the reason for the closure and drainage. The left hip wound, which had culture-positive MRSA, was again aggressively debrided, cultured, re-drained and pulse irrigated. Larger blood vessels were repaired and the remainder of the bleeding was controlled with the Bovie. Partial tissue transfer and closure was performed that was packed open with saline gauze. The patient tolerated the procedure well, returned to the recovery room in stable condition. Graham Mantilla MD
[2017-04-10] MEDS: Meropenem 1 GM in Sodium Chloride 0.9% 100 ML IVPB SCH ×3 (05:52→22:26)
[2017-04-10] MEDS: Levothyroxine 75 MCG TAB PO SCH (05:52)
[2017-04-10] MEDS: (Novolog) Insulin Aspart, Recombinant 100 u/ml 10 ml vial SC SCH ×4 (07:30→22:05)
[2017-04-10 08:55] LABS: BASO % 0.8 % (0.0-2.0); EOS # 0.6 K/uL (0.0-0.7); EOS % 12.7 % (0.0-4.0); HEMATOCRIT 26.5 % (34.0-47.0); LYMPH # 1.4 K/uL (1.0-4.3); LYMPH % 31.1 % (20.0-40.0); MEAN CELL VOLUME 74.5 fL (81.0-99.0); MEAN CORPUSCULAR HEMOGLOBIN 23.9 pg (27.0-31.0); MEAN CORPUSCULAR HGB CONC 32.1 g/dL (33.0-37.0); MEAN PLATELET VOLUME 7.8 fL (7.2-11.7); MONO # 0.5 K/uL (0.0-0.8); MONO % 10.8 % (0.0-10.0); RED CELL DISTRIBUTION WIDTH 15.6 % (11.5-14.5); WHITE BLOOD COUNT 4.5 K/uL (4.8-10.8)
[2017-04-10 09:07] LABS: ALKALINE PHOSPHATASE 60 U/L (38-126); ALT/SGPT 28 U/L (9-52); AST/SGOT 22 U/L (14-36); BILIRUBIN,TOTAL 0.3 mg/dL (0.2-1.3); BLOOD UREA NITROGEN 9 mg/dL (7-17); CALCIUM 8.3 mg/dl (8.6-10.4); CARBON DIOXIDE 29 mmol/L (22-30); CHLORIDE 99 mmol/L (98-107); GFR AFRICAN-AMERICAN > 60; GLUCOSE,RANDOM 117 mg/dL (65-105); POTASSIUM 4.2 mmol/L (3.6-5.2); SODIUM 140 mmol/L (132-148); TOTAL PROTEIN 6.6 g/dL (6.3-8.3)
--- NOTE | 2017-04-10 17:51 | CP.PCM.PN ---
Subjective - Date & Time of Evaluation Date of Evaluation: 04/10/17 Time of Evaluation: 10:00 - Subjective Subjective: IV rx in progress MRSA from wounds s/p debridement cont iv rx and wound care will check Vanco levels Objective - Vital Signs/Intake and Output Vital Signs (last 24 hours): Temp Pulse Resp BP Pulse Ox 98.1 F 78 18 143/77 97 04/10/17 16:05 04/10/17 16:05 04/10/17 16:05 04/10/17 16:05 04/10/17 16:05 Intake and Output: 04/10/17 04/10/17 06:59 18:59 Intake Total 780 Output Total 10 Balance 770 - Medications Medications: Current Medications Docusate Sodium (Colace) 100 mg PO BID [facility] Last Admin: 04/10/17 11:12 Dose: 100 mg Heparin Sodium (Porcine) (Heparin) 5,000 units SC Q12 [facility] Last Admin: 04/10/17 11:11 Dose: Not Given Hydromorphone HCl (Dilaudid) 1 mg IVP Q4H PRN PRN Reason: Pain, moderate (4-7) Last Admin: 04/08/17 04:54 Dose: 1 mg Meropenem 1 gm/ Sodium (Chloride) 100 mls @ 100 mls/hr IVPB Q8 [facility] Last Admin: 04/10/17 14:09 Dose: 100 mls/hr Vancomycin HCl 1,000 mg/ (Sodium Chloride) 250 mls @ 166.6 mls/hr IVPB Q12H [facility] Last Admin: 04/10/17 12:37 Dose: 166.6 mls/hr Insulin Aspart (Novolog) 0 unit SC ACHS [facility] PRN Reason: Protocol Last Admin: 04/10/17 12:30 Dose: Not Given Levothyroxine Sodium (Synthroid) 75 mcg PO 0630 [facility] Last Admin: 04/10/17 05:52 Dose: 75 mcg Ondansetron HCl (Zofran Inj) 4 mg IVP Q6 PRN PRN Reason: Nausea/Vomiting Last Admin: 04/09/17 17:58 Dose: 4 mg Pantoprazole Sodium (Protonix Inj) 40 mg IVP DAILY [facility] Last Admin: 04/10/17 11:12 Dose: 40 mg - Labs Labs: 04/10/17 08:49 04/10/17 08:49
[2017-04-11] MEDS: Meropenem 1 GM in Sodium Chloride 0.9% 100 ML IVPB SCH (05:16)
[2017-04-11] MEDS: Levothyroxine 75 MCG TAB PO SCH (07:30)
[2017-04-11] MEDS: (Novolog) Insulin Aspart, Recombinant 100 u/ml 10 ml vial SC SCH ×4 (08:24→21:30)
[2017-04-11] MEDS ORDERED: Propofol 10 mg/ml Inj (20 ML) ONE (14:02)
[2017-04-11] MEDS ORDERED: Midazolam 2 MG/2 ML VIAL ONE (14:02)
[2017-04-11] MEDS ORDERED: Lactated Ringer's 1,000 ML IV ONE (14:35)
[2017-04-11] MEDS ORDERED: Bupivacaine HCl 0.25% PF (10 ml) Inj ONE ×2 (14:39)
[2017-04-11] MEDS ORDERED: Bacitracin Ointment 30 GM TUBE ONE (15:19)
[2017-04-11] MEDS ORDERED: HYDROmorphone 0.5 mg/0.5 ml ISec IVP PRN (15:31)
--- NOTE | 2017-04-11 17:14 | CP.PCM.PN ---
Subjective - Date & Time of Evaluation Date of Evaluation: 04/11/17 Time of Evaluation: 08:00 - Subjective Subjective: s/p closure of wounds Objective - Vital Signs/Intake and Output Vital Signs (last 24 hours): Temp Pulse Resp BP Pulse Ox 98.9 F 86 16 140/74 100 04/11/17 16:15 04/11/17 16:15 04/11/17 16:15 04/11/17 16:15 04/11/17 16:15 Intake and Output: 04/11/17 04/11/17 06:59 18:59 Intake Total 780 505 Output Total 10 350 Balance 770 155 - Medications Medications: Current Medications Docusate Sodium (Colace) 100 mg PO BID [facility] Last Admin: 04/11/17 10:27 Dose: Not Given Heparin Sodium (Porcine) (Heparin) 5,000 units SC Q12 [facility] Last Admin: 04/11/17 10:27 Dose: Not Given Hydromorphone HCl (Dilaudid) 0.5 mg IVP Q10M PRN PRN Reason: Pain, moderate (4-7) Stop: 04/11/17 17:31 Last Admin: 04/11/17 15:35 Dose: 0.5 mg Vancomycin HCl 1,000 mg/ (Sodium Chloride) 250 mls @ 166.6 mls/hr IVPB Q12H [facility] Last Admin: 04/11/17 13:20 Dose: 166.6 mls/hr Insulin Aspart (Novolog) 0 unit SC ACHS [facility] PRN Reason: Protocol Last Admin: 04/11/17 11:57 Dose: Not Given Levothyroxine Sodium (Synthroid) 75 mcg PO 0630 [facility] Last Admin: 04/11/17 07:30 Dose: 75 mcg Ondansetron HCl (Zofran Inj) 4 mg IVP Q6 PRN PRN Reason: Nausea/Vomiting Last Admin: 04/09/17 17:58 Dose: 4 mg Pantoprazole Sodium (Protonix Inj) 40 mg IVP DAILY [facility] Last Admin: 04/11/17 10:34 Dose: 40 mg - Labs Labs: 04/10/17 08:49 04/10/17 08:49 - Constitutional Appears: Non-toxic, Chronically Ill - Head Exam Head Exam: NORMOCEPHALIC - Eye Exam Eye Exam: PERRL - ENT Exam ENT Exam: Normal External Ear Exam - Neck Exam Neck Exam: absent: Lymphadenopathy - Respiratory Exam Respiratory Exam: Decreased Breath Sounds - Cardiovascular Exam Cardiovascular Exam: REGULAR RHYTHM - GI/Abdominal Exam GI & Abdominal Exam: Distended, Soft Assessment and Plan - Assessment and Plan (Free Text) Assessment: cont iv vanco
--- NOTE | 2017-04-12 03:21 | OP ---
PROCEDURE DATE: 04/11/2017 PREOPERATIVE DIAGNOSIS: MRSA, abscess of the left hip and pelvis. POSTOPERATIVE DIAGNOSIS: MRSA, abscess of the left hip and pelvis. PROCEDURE PERFORMED: Re-drainage of left hip and pelvic abscess with debridement, pulse irrigation and adjacent tissue transfer closure greater than 30 sq. cm. SURGEON: Dr. Mantilla. TYPE OF ANESTHESIA: General. ESTIMATED BLOOD LOSS: 40 mL POSTOPERATIVE CONDITION: Stable. DESCRIPTION OF PROCEDURE: The patient was taken back to the operating room, general anesthesia was administrated and placed in the right lateral decubitus position. The left hip packing was removed and the area was prepped and draped. The wound was again debrided. Bleeding was controlled using the Bovie and larger vessels were repaired. Any remaining pelvic collections were drained and cultured and the wound was then pulse irrigated with saline solution. An adjacent tissue transfer closure was performed by widely mobilizing and using multiple layers of heavy Monocryl and subcuticular Monocryl and skin clips. A #19 Chase drain was placed and brought out through a superior stab wound incision prior to closure. The patient tolerated the procedure well. Returned to the recovery room in stable condition. Graham Mantilla MD
[2017-04-12] MEDS: Levothyroxine 75 MCG TAB PO SCH (06:03)
[2017-04-12] MEDS: (Novolog) Insulin Aspart, Recombinant 100 u/ml 10 ml vial SC SCH ×4 (07:30→21:18)
[2017-04-13] MEDS: Levothyroxine 75 MCG TAB PO SCH (06:28)
[2017-04-13] MEDS: (Novolog) Insulin Aspart, Recombinant 100 u/ml 10 ml vial SC SCH ×4 (07:30→21:43)
--- NOTE | 2017-04-13 14:17 | CP.PCM.PN ---
Subjective - Date & Time of Evaluation Date of Evaluation: 04/13/17 Time of Evaluation: 09:00 - Subjective Subjective: drains in place denies fever wound rx in progress iv rx renewed Objective - Vital Signs/Intake and Output Vital Signs (last 24 hours): Temp Pulse Resp BP Pulse Ox 97.9 F 87 21 118/72 95 04/13/17 08:27 04/13/17 08:27 04/13/17 08:27 04/13/17 08:27 04/13/17 08:27 Intake and Output: 04/13/17 04/13/17 06:59 18:59 Output Total 85 Balance -85 - Medications Medications: Current Medications Docusate Sodium (Colace) 100 mg PO BID [facility] Last Admin: 04/13/17 09:13 Dose: 100 mg Heparin Sodium (Porcine) (Heparin) 5,000 units SC Q8 [facility] Last Admin: 04/13/17 13:21 Dose: 5,000 units Vancomycin HCl 1,000 mg/ (Sodium Chloride) 250 mls @ 166.6 mls/hr IVPB Q12H [facility] Last Admin: 04/13/17 12:38 Dose: 166.6 mls/hr Insulin Aspart (Novolog) 0 unit SC ACHS [facility] PRN Reason: Protocol Last Admin: 04/13/17 12:39 Dose: 3 unit Levothyroxine Sodium (Synthroid) 75 mcg PO 0630 [facility] Last Admin: 04/13/17 06:28 Dose: 75 mcg Ondansetron HCl (Zofran Inj) 4 mg IVP Q6 PRN PRN Reason: Nausea/Vomiting Last Admin: 04/09/17 17:58 Dose: 4 mg Pantoprazole Sodium (Protonix Inj) 40 mg IVP DAILY [facility] Last Admin: 04/13/17 09:12 Dose: 40 mg - Labs Labs: 04/10/17 08:49 04/10/17 08:49 - Constitutional Appears: Non-toxic, Chronically Ill - Head Exam Head Exam: NORMOCEPHALIC - Eye Exam Eye Exam: PERRL. absent: Scleral icterus - ENT Exam ENT Exam: Mucous Membranes Dry - Neck Exam Neck Exam: absent: Lymphadenopathy - Respiratory Exam Respiratory Exam: Decreased Breath Sounds - Cardiovascular Exam Cardiovascular Exam: REGULAR RHYTHM - GI/Abdominal Exam GI & Abdominal Exam: Distended Assessment and Plan - Assessment and Plan (Free Text) Plan: cont iv rx for mrsa
[2017-04-14] MEDS: Levothyroxine 75 MCG TAB PO SCH (05:37)
[2017-04-14] MEDS: (Novolog) Insulin Aspart, Recombinant 100 u/ml 10 ml vial SC SCH ×4 (07:30→22:18)
[2017-04-14 07:43] LABS: CHLORIDE 102 mmol/L (98-107)
[2017-04-14 07:45] LABS: POTASSIUM 3.7 mmol/L (3.6-5.2); SODIUM 136 mmol/L (132-148)
[2017-04-14 07:47] LABS: ALKALINE PHOSPHATASE 63 U/L (38-126); ALT/SGPT 42 U/L (9-52); AST/SGOT 40 U/L (14-36); BILIRUBIN,TOTAL 0.4 mg/dL (0.2-1.3); BLOOD UREA NITROGEN 13 mg/dL (7-17); CARBON DIOXIDE 26 mmol/L (22-30); GFR AFRICAN-AMERICAN > 60; GLUCOSE,RANDOM 134 mg/dL (65-105); TOTAL PROTEIN 6.5 g/dL (6.3-8.3)
[2017-04-14 07:48] LABS: CALCIUM 8.7 mg/dl (8.6-10.4)
[2017-04-14 07:53] LABS: BASO % 0.6 % (0.0-2.0); EOS # 0.7 K/uL (0.0-0.7); EOS % 15.5 % (0.0-4.0); HEMATOCRIT 27.3 % (34.0-47.0); LYMPH % 22.6 % (20.0-40.0); MEAN CELL VOLUME 74.3 fL (81.0-99.0); MEAN CORPUSCULAR HEMOGLOBIN 24.2 pg (27.0-31.0); MEAN CORPUSCULAR HGB CONC 32.5 g/dL (33.0-37.0); MEAN PLATELET VOLUME 8.5 fL (7.2-11.7); MONO # 0.6 K/uL (0.0-0.8); MONO % 13.6 % (0.0-10.0); RED CELL DISTRIBUTION WIDTH 15.9 % (11.5-14.5); WHITE BLOOD COUNT 4.5 K/uL (4.8-10.8)
--- NOTE | 2017-04-14 10:54 | CP.PCM.PN ---
Subjective - Date & Time of Evaluation Date of Evaluation: 04/14/17 Time of Evaluation: 09:00 - Subjective Subjective: drains in place iv rx in progress for picc and out pt rx Objective - Vital Signs/Intake and Output Vital Signs (last 24 hours): Temp Pulse Resp BP Pulse Ox 98.1 F 78 20 108/73 98 04/14/17 08:25 04/14/17 08:25 04/14/17 08:25 04/14/17 08:25 04/14/17 08:25 Intake and Output: 04/14/17 04/14/17 06:59 18:59 Intake Total 240 Output Total 40 Balance 200 - Medications Medications: Current Medications Docusate Sodium (Colace) 100 mg PO BID [facility] Last Admin: 04/14/17 09:21 Dose: Not Given Heparin Sodium (Porcine) (Heparin) 5,000 units SC Q8 [facility] Last Admin: 04/14/17 05:37 Dose: 5,000 units Vancomycin HCl 1,000 mg/ (Sodium Chloride) 250 mls @ 166.6 mls/hr IVPB Q12H [facility] Last Admin: 04/14/17 00:26 Dose: 166.6 mls/hr Insulin Aspart (Novolog) 0 unit SC ACHS [facility] PRN Reason: Protocol Last Admin: 04/14/17 07:30 Dose: Not Given Levothyroxine Sodium (Synthroid) 75 mcg PO 0630 [facility] Last Admin: 04/14/17 05:37 Dose: 75 mcg Ondansetron HCl (Zofran Inj) 4 mg IVP Q6 PRN PRN Reason: Nausea/Vomiting Last Admin: 04/09/17 17:58 Dose: 4 mg Pantoprazole Sodium (Protonix Inj) 40 mg IVP DAILY [facility] Last Admin: 04/14/17 09:21 Dose: 40 mg - Labs Labs: 04/14/17 07:26 04/14/17 07:26
[2017-04-15] MEDS: Levothyroxine 75 MCG TAB PO SCH (06:09)
--- NOTE | 2017-04-15 09:01 | CP.PCM.PN ---
Subjective - Date & Time of Evaluation Date of Evaluation: 04/15/17 Time of Evaluation: 08:57 - Subjective Subjective: Patient has cholestatoma according to CT done before this admission. She was told what a cholesteatoma is and that she needs to get surgery for it. She was given the the name and phone number for Dr. Hernandez at [facility] and told to call him to make an appointment. She was told Dr. Hernandez can do the operation in her ear. I contacted Dr. Hernandez and gave him the patients name, number and the fact that she has cholesteatoma. Objective - Vital Signs/Intake and Output Vital Signs (last 24 hours): Temp Pulse Resp BP Pulse Ox 98.1 F 76 18 99/58 L 100 04/14/17 23:25 04/14/17 23:25 04/14/17 23:25 04/14/17 23:25 04/14/17 23:25 Intake and Output: 04/15/17 04/15/17 06:59 18:59 Output Total 57 Balance -57 - Medications Medications: Current Medications Docusate Sodium (Colace) 100 mg PO BID [facility] Last Admin: 04/14/17 17:29 Dose: Not Given Heparin Sodium (Porcine) (Heparin) 5,000 units SC Q8 [facility] Last Admin: 04/15/17 06:08 Dose: 5,000 units Vancomycin HCl 1,000 mg/ (Sodium Chloride) 250 mls @ 166.6 mls/hr IVPB Q12H [facility] Last Admin: 04/15/17 00:06 Dose: 166.6 mls/hr Insulin Aspart (Novolog) 0 unit SC ACHS [facility] PRN Reason: Protocol Last Admin: 04/14/17 22:18 Dose: Not Given Levothyroxine Sodium (Synthroid) 75 mcg PO 0630 [facility] Last Admin: 04/15/17 06:09 Dose: 75 mcg Ondansetron HCl (Zofran Inj) 4 mg IVP Q6 [facility] PRN Reason: Nausea/Vomiting Last Admin: 04/09/17 17:58 Dose: 4 mg Pantoprazole Sodium (Protonix Inj) 40 mg IVP DAILY [facility] Last Admin: 04/14/17 09:21 Dose: 40 mg - Labs Labs: 04/14/17 07:26 04/14/17 07:26
[2017-04-15] MEDS: (Novolog) Insulin Aspart, Recombinant 100 u/ml 10 ml vial SC SCH ×2 (09:10→16:18)
[2017-04-15 09:19] VITALS: RESP 20
[2017-04-15 16:00] VITALS: BP 138/80; PULSE 82; O2SAT 99
[2017-04-15 23:55] VITALS: TEMP 98.2
--- NOTE | 2017-04-21 11:15 | US ---
Date of procedure: 04/15/2017 Procedure: Ultrasound guidance for vascular access HISTORY: Poor venous access TECHNIQUE: Following informed consent and procedure time-out, the patient placed supine on the interventional table and right and left arm prepped and draped in the usual sterile fashion. Ultrasound of patient's arm showed very small basilic and also very small brachial veins. Ultrasound guidance was obtained for purposes of PICC placement. IMPRESSION: Ultrasound guidance for vascular access.
== END 2017-04-15 18:20 | DRG 899 ==
LOC: C.ER 20:19 → C.9E 22:06 → C.9I 04-07 07:23 → C.3T 04-07 18:20 → OBSVTOIN 04-08 14:09 → C.5T 04-09 16:24
PROVIDERS: ADMIT Surgery; ATTEND Surgery
PROC: 0JDM0ZZ Extraction of Left Upper Leg Subcutaneous Tissue and Fascia, Open Approach (ICD-10-PCS; 2017-04-07)
PROC: 0JDP0ZZ Extraction of Left Lower Leg Subcutaneous Tissue and Fascia, Open Approach (ICD-10-PCS; principal; 2017-04-07 13:15)
PROC: 0HDKXZZ Extraction of Right Lower Leg Skin, External Approach (ICD-10-PCS; 2017-04-09)
PROC: 0HDJXZZ Extraction of Left Upper Leg Skin, External Approach (ICD-10-PCS; 2017-04-09)
PROC: 0HDJXZZ Extraction of Left Upper Leg Skin, External Approach (ICD-10-PCS; 2017-04-11)
PROC: 02HV33Z Insertion of Infusion Device into Superior Vena Cava, Percutaneous Approach (ICD-10-PCS; 2017-04-15)
PROC: B548ZZA Ultrasonography of Superior Vena Cava, Guidance (ICD-10-PCS; 2017-04-15)
DX: T81.4XXA Infection following a procedure, initial encounter (principal); L02.416 Cutaneous abscess of left lower limb; L03.116 Cellulitis of left lower limb; L03.115 Cellulitis of right lower limb; B95.62 Methicillin resistant Staphylococcus aureus infection as the cause of diseases classified elsewhere; D17.9 Benign lipomatous neoplasm, unspecified; E03.9 Hypothyroidism, unspecified; H71.90 Unspecified cholesteatoma, unspecified ear; N73.9 Female pelvic inflammatory disease, unspecified; Z68.36 Body mass index [BMI] 36.0-36.9, adult

== ENCOUNTER 2017-04-21 12:43 | Emergency (ER) | payer MEDICAID ==
[2017-04-21 12:43] VITALS: BMI 37.0
[2017-04-21 12:49] VITALS: TEMP 98.1
--- NOTE | 2017-04-21 13:43 | C.PDOC ---
History Of Present Illness 47 yo female come in for evaluation of itchy rash gradually developed for past 5 days " after started on antibiotic for infection. Pt admits, keep taking antibiotic with mild worsening of rash over B/L arms. Otherwise, pt denies fever , chills, headache, dizziness, throat tightness or swelling, SOB, CP, wheezing, abd. pain, N/V, denies nay other active complaints. Pt reports, " in rehab they giving me some pills for itchiness". Time Seen by Provider: 04/21/17 13:00 Chief Complaint (Nursing): Abnormal Skin Integrity History Per: Patient Onset/Duration Of Symptoms: Gradual Current Symptoms Are (Timing): Still Present Past Medical History Reviewed: Historical Data, Nursing Documentation, Vital Signs Vital Signs: Last Vital Signs Temp 98.1 F 04/21/17 12:47 Pulse 78 04/21/17 15:02 Resp 18 04/21/17 15:02 BP 124/72 04/21/17 15:02 Pulse Ox 98 04/21/17 15:02 - Medical History PMH: Arthritis (BACK; KNEES), Hypothyroidism Other Surgeries: recent Ortho surgery by - [facility] Procedures EXCISION OF L LOW LEG SUBCU/FASCIA, OPEN APPROACH (02/26/17) EXCISION OF L UP LEG SUBCU/FASCIA, OPEN APPROACH, DIAGN (03/17/17) EXCISION OF R LOW LEG SUBCU/FASCIA, OPEN APPROACH (02/26/17) EXCISION OF R UP LEG SUBCU/FASCIA, OPEN APPROACH (03/17/17) EXTRACTION OF RIGHT LOWER LEG SKIN, EXTERNAL APPROACH (03/17/17) TRANSFER LEFT UPPER LEG SKIN, EXTERNAL APPROACH (03/17/17) TRANSFER RIGHT UPPER LEG SKIN, EXTERNAL APPROACH (03/17/17) Family History: States: Unknown Family Hx - Social History Hx Tobacco Use: No Hx Alcohol Use: No Hx Substance Use: No - Immunization History Hx Tetanus Toxoid Vaccination: No Hx Influenza Vaccination: Yes Hx Pneumococcal Vaccination: No Review Of Systems Except As Marked, All Systems Reviewed And Found Negative. Constitutional: Negative for: Fever, Chills Eyes: Negative for: Vision Change ENT: Negative for: Mouth Swelling, Throat Pain, Throat Swelling Cardiovascular: Negative for: Chest Pain Respiratory: Negative for: Cough, Shortness of Breath, Wheezing Gastrointestinal: Negative for: Nausea, Vomiting, Abdominal Pain Skin: Positive for: Rash Neurological: Negative for: Weakness, Numbness, Altered Mental Status, Dizziness Physical Exam - Physical Exam Appears: Well, Non-toxic, No Acute Distress Skin: Normal Color, Warm (scattered erythematous rash to B/L forearm with exoriation, mild edema. No cellulitis.), Rash Eye(s): bilateral: PERRL Nose: No Discharge Oral Mucosa: Moist, No Drooling, No Trismus Throat: No Drooling, Other (uvula midline, no edema.) Neck: Supple Chest: Symmetrical Cardiovascular: Rhythm Regular Respiratory: No Decreased Breath Sounds, No Accessory Muscle Use, No Stridor, No Wheezing Extremity: No Pedal Edema, Other (B/L knees covered with steril dressing, no edema, no erythema. no cellulitis.) Neurological/Psych: Oriented x3, Normal Speech ED Course And Treatment O2 Sat by Pulse Oximetry: 100 Pulse Ox Interpretation: Normal Progress Note: was paged few times, no call back. Case discussed with , aware of possible allergic eraction., No abx recommend now to substitute previous one. Will F/u outpt. On re-evaluation, pt is afebrile, hemodynamicaly stable. Non-toxic. PulsEOx 100% RA. ENT: uvula midine, no edema. Lungs: CTA B/L, BS equal B/L. B/L UEs: rash note dlikely sec. to abx. No cellulitis. Pt advised to stop antibiotic immediately. Follow up with for re-evaluation and change in abx as need. return to ED at any time if any worsening or new changes. Disposition Counseled Patient/Family Regarding: Diagnosis, Need For Followup, Rx Given - Disposition Referrals: Graham Mantilla MD [Staff Provider] - Disposition: HOME/ ROUTINE Disposition Time: 14:54 Condition: STABLE Additional Instructions: STOP ANTIBIOTIC IMMEDIATELY DUE TO POSSIBLE ALLERGIC REACTION TAKE MEDICATION PRESCRIBED FOLLOW UP WITH PMD IN 1-2 DAYS FOR RE-EVALUATION. RETURN TO ED IF ANY WORSENING OR NEW CHANGES. Prescriptions: DiphenhydrAMINE [Benadryl] 25 mg PO BID #10 cap Famotidine [Pepcid] 20 mg PO BID #10 tab Prednisone [Deltasone] 20 mg PO DAILY #3 tablet Instructions: Antibiotic Medication Allergy (ED) Forms: [employer] (Welsh) - Clinical Impression Clinical Impression: Allergic reaction caused by a drug
[2017-04-21 15:03] VITALS: BP 124/72; PULSE 78; RESP 18
[2017-04-21 15:21] VITALS: O2SAT 100
== END 2017-04-21 16:29 | disposition home or self-care (01) ==
LOC: C.ER 12:43
DX: L27.1 Localized skin eruption due to drugs and medicaments taken internally (principal); T36.95XA Adverse effect of unspecified systemic antibiotic, initial encounter; Y92.009 Unspecified place in unspecified non-institutional (private) residence as the place of occurrence of the external cause

== ENCOUNTER 2018-06-22 10:17 | Day surgery (SDC) | payer MEDICAID ==
[2018-06-17 10:37] VITALS: BMI 38.2
[2018-06-22] MEDS ORDERED: ceFAZolin 1 gm in NS 2 GM/200 ML BAG IVPB ONE (13:00)
[2018-06-22] MEDS ORDERED: Bupivacaine 0.25% 20 ML INJ IJ ONE (13:12)
[2018-06-22] MEDS ORDERED: HYDROmorphone 0.5 mg/0.5 ml ISec IVP PRN (13:31)
[2018-06-22] MEDS ORDERED: Oxycodone/Acetaminophen 5/325 mg Tab PO PRN (14:06)
[2018-06-22 14:33] VITALS: O2SAT 100
[2018-06-22 14:57] VITALS: BP 137/72; PULSE 77; RESP 18; TEMP 98
--- NOTE | 2018-06-22 23:42 | OP ---
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 PROCEDURE PERFORMED: Wide deep excision (radical dissection) of 10 cm neoplasm of the right hip with repair of blood vessel and advancement of flap closure. SURGEON: Graham Mantilla MD ANESTHESIA: General. BLOOD LOSS: 30 mL. POSTOPERATIVE CONDITION: Stable. 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 She is status post wide deep excision 1 year ago. She presents with a large 10 cm soft tissue mass and now to undergo radical resection. PROCEDURE: The patient was taken to the operating room, general anesthesia was administered. She was placed in the left lateral decubitus position. The right hip was prepped and draped. A generous elliptical incision was made surrounding the mass. Superior and inferior tissue flaps were raised and the mass was completely dissected free into the fascia and removed. Bleeding was controlled using the Bovie. A large deep blood vessel was noted to be bleeding, it was mobilized and repaired with Prolene. The wound was irrigated with copious amounts of saline solution. Full-thickness tissue flaps were raised inferiorly and superiorly. Counter incisions were made and advancement flap closure was performed, totaling 42 sq cm utilizing heavy Monocryl, subcuticular Monocryl, and skin clips. The patient tolerated the procedure well and returned to recovery in stable condition. Graham Mantilla MD
== END 2018-06-22 15:14 | disposition home or self-care (01) ==
LOC: C.SDS 10:17
PROVIDERS: ATTEND Surgery
DX: D17.23 Benign lipomatous neoplasm of skin and subcutaneous tissue of right leg (principal)
CPT/HCPCS: 14020; 82948; 88304; J0690; J1170; J3010